=== PATIENT | male | born 1955 | race Caucasian/White ===

== ENCOUNTER → 2018-10-17 22:20 | Outpatient (CLI) | payer BC, SELFPAY ==
[2018-10-17 18:35] VITALS: BMI 39.9
[2018-10-17 22:39] LABS: Absolute Lymphocyte Count 1.58 X10^3/ul (0.83-4.51); Absolute Neutrophil Count 4.8 X10^3/uL (2.0-7.7); Basophil# 0.04 X10^3/uL; Basophil% 0.5 % (0-1); Eosinophil# 0.33 X10^3/uL; Eosinophils% 4.4 % (0-5); Hematocrit 48.7 % (40-54); Hemoglobin 16.3 g/dl (13.0-16.5); Lymphocyte # 1.58 X10^3/ul (4.0); Lymphocyte % 20.8 % (19-41); Mean Corp Hgb Conc 33.5 g/gl (32-36); Mean Corpuscular Hgb 29.7 pg (27.0-32.0); Mean Corpuscular Volume 88.9 fL (80-94); Mean Platelet Vol. 11.7 fl (6.2-12.0); Monocyte# 0.77 X10^3/uL; Monocyte% 10.2 % (0-10); Neutrophil # 4.77 X10^3/uL (2.7-7.7); Neutrophil % 62.9 % (47-70); Platelet Count 83 K/mm3 (150-450); RBC Distribution Width CV 13.6 % (11.6-14.6); RBC Distribution Width SD 43.7 fl (35.1-43.9); Red Blood Count 5.48 M/mm3 (4.6-6.2); White Blood Count 7.6 K/mm3 (4.4-11.0)
[2018-10-17 22:44] LABS: POSITIVE COUNT NO; POSITIVE DIFFERENTIAL NO; POSITIVE MORPHOLOGY NO
[2018-10-17 22:54] LABS: AST(SGOT) 26 U/L (15-37); Alanine Aminotransfer ALT/SGPT 52 U/L (16-61); Albumin, Serum 3.9 g/dL (3.2-5.0); Alkaline Phosphatase 105 U/L (45-117); Anion Gap 6 (5-15); BUN 31 mg/dL (7-18); BUN/Creat Ratio 24.4 RATIO (10-20); Calcium,Total 9.2 mg/dL (8.5-10.1); Chloride 107 mmol/L (98-107); Creatinine, Serum 1.27 mg/dL (0.70-1.30); EST Glomerular Filtration Rate 60 mL/min (>60); Est Glom Filt Rate - Afr Amer 73 mL/min (>60); Glucose 93 mg/dL (74-106); Lipase 163 U/L (73-393); Potassium 4.4 mmol/L (3.5-5.1); Protein, Total 7.9 g/dL (6.4-8.2); Sodium Level 139 mmol/L (136-145)
== END ==
PROVIDERS: Referring Provider Nurse Practitioner; Visit Provider Nurse Practitioner
DX: Q64.9 Congenital malformation of urinary system, unspecified (principal); R35.0 Frequency of micturition; D69.59 Other secondary thrombocytopenia; T50.905A Adverse effect of unspecified drugs, medicaments and biological substances, initial encounter; R10.9 Unspecified abdominal pain
CPT/HCPCS: 80053; 83690; 85025; 87086

== ENCOUNTER → 2020-06-26 | Outpatient (CLI) | payer MEDICARE, SELFPAY ==
[2020-06-26 18:44] VITALS: BMI 38.6
[2020-06-26 21:05] LABS: Uric Acid 9.3 mg/dL (3.5-7.2)
== END | disposition home or self-care (01) ==
PROVIDERS: PCP Nurse Practitioner; Referring Provider Nurse Practitioner; Visit Provider Nurse Practitioner
DX: M10.9 Gout, unspecified (principal)
CPT/HCPCS: 84550

== ENCOUNTER → 2021-01-08 | Outpatient (CLI) | payer MEDICARE, SELFPAY ==
[2021-01-08 17:56] VITALS: BMI 39.2
[2021-01-08 22:36] LABS: Absolute Lymphocyte Count 1.18 X10^3/uL (0.83-4.51); Absolute Neutrophil Count 5.3 X10^3/uL (2.0-7.7); Basophil# 0.07 X10^3/uL; Basophil% 0.9 % (0-1); Eosinophils% 2.7 % (0-5); Hematocrit 47.6 % (40-54); Hemoglobin 15.5 g/dL (13.0-16.5); Lymphocyte # 1.18 X10^3/ul (4.0); Lymphocyte % 15.7 % (19-41); Mean Corp Hgb Conc 32.6 g/dL (32-36); Mean Corpuscular Hgb 28.9 pg (27.0-32.0); Mean Corpuscular Volume 88.6 fL (80-94); Mean Platelet Vol. 11.6 fl (6.2-12.0); Monocyte# 0.66 X10^3/uL; Monocyte% 8.8 % (0-10); NRBC Flagged by Analyzer 0 % (0-5); Neutrophil # 5.33 X10^3/uL (2.7-7.7); POSITIVE COUNT YES; Platelet Count 89 K/mm3 (150-450); RBC Distribution Width CV 13.3 % (11.6-14.6); RBC Distribution Width SD 43.3 fl (35.1-43.9); Red Blood Count 5.37 M/mm3 (4.6-6.2); White Blood Count 7.5 K/mm3 (4.4-11.0)
[2021-01-08 22:52] LABS: ALB/GLOB Ratio 0.9 RATIO (0.9-2.4); AST(SGOT) 27 U/L (15-37); Alanine Aminotransfer ALT/SGPT 42 U/L (16-61); Albumin, Serum 3.7 g/dL (3.2-5.0); Alkaline Phosphatase 122 U/L (45-117); Anion Gap 6 (5-15); BUN 37 mg/dL (7-18); BUN/Creat Ratio 20.9 RATIO (10-20); Chloride 103 mmol/L (98-107); Creatinine, Serum 1.77 mg/dL (0.70-1.30); EST Glomerular Filtration Rate 41 mL/min (>60); Est Glom Filt Rate - Afr Amer 50 mL/min (>60); Globulin 4.3 g/dL (2.2-4.2); Glucose 103 mg/dL (74-106); Potassium 4.4 mmol/L (3.5-5.1); Sodium Level 139 mmol/L (136-145); Uric Acid 9.3 mg/dL (3.5-7.2)
[2021-01-08 22:54] LABS: Differential Indicated SCAN CRITERIA MET
[2021-01-08 23:15] LABS: Differential Comment SCANNED
== END | disposition home or self-care (01) ==
PROVIDERS: Visit Provider Nurse Practitioner
DX: M10.9 Gout, unspecified (principal); R22.32 Localized swelling, mass and lump, left upper limb
CPT/HCPCS: 80053; 84550; 85025

== ENCOUNTER → 2021-07-10 | Outpatient (CLI) | payer MEDICARE, SELFPAY ==
[2021-07-10 19:21] VITALS: BMI 38.6
[2021-07-10 23:14] LABS: ALB/GLOB Ratio 1.2 RATIO (0.9-2.4); AST(SGOT) 18 U/L (15-37); Alanine Aminotransfer ALT/SGPT 42 U/L (16-61); Albumin, Serum 3.9 g/dL (3.2-5.0); Alkaline Phosphatase 130 U/L (45-117); Anion Gap 8 (5-15); BUN 32 mg/dL (7-18); BUN/Creat Ratio 19.3 RATIO (10-20); Calcium,Total 8.9 mg/dL (8.5-10.1); Chloride 107 mmol/L (98-107); Creatinine, Serum 1.66 mg/dL (0.70-1.30); EST Glomerular Filtration Rate 44 mL/min (>60); Est Glom Filt Rate - Afr Amer 53 mL/min (>60); Globulin 3.2 g/dL (2.2-4.2); Glucose 90 mg/dL (74-106); Potassium 4.2 mmol/L (3.5-5.1); Protein, Total 7.1 g/dL (6.4-8.2); Sodium Level 139 mmol/L (136-145); Uric Acid 10.3 mg/dL (3.5-7.2)
== END | disposition home or self-care (01) ==
PROVIDERS: Visit Provider Nurse Practitioner
DX: I73.9 Peripheral vascular disease, unspecified (principal); M10.341 Gout due to renal impairment, right hand; R60.0 Localized edema
CPT/HCPCS: 80053; 84550

== ENCOUNTER → 2021-07-18 09:30 | Outpatient (CLI) | payer MEDICARE, SELFPAY ==
[2021-07-10 19:21] VITALS: BMI 38.6
--- NOTE | 2021-07-18 09:41 | VDLE_ITS ---
Reason For Study: Edema RIGHT LEFT CFV is compressible, spontaneous, phasic, CFV is compressible, spontaneous, phasic, competent and demonstrates normal competent, and demonstrates normal augmentation. augmentation. FV is compressible, spontaneous, phasic, FV is compressible, spontaneous, phasic, competent and demonstrates normal competent and demonstrates normal augmentation. augmentation. POP V is compressible, spontaneous, phasic, POP V is compressible, spontaneous, phasic, competent and demonstrates normal competent and demonstrates normal augmentation. augmentation. T/P Trunk is compressible. T/P Trunk is compressible. PTV is compressible. PTV is compressible. RT PerV is compressible. LT PerV is compressible. Nonvascularized structure noted in the right Nonvascularized structure noted in the left popliteal fossa measuring approximently 2.31 popliteal fossa measuring approximently 1.45 x 3.51 x 4.41 cm. x 4.07 x 4.46 cm. SFJ is competent and measures 0.90 x 0.98 cm. SFJ is competent and measures 0.82 x 0.89 cm. GSV proximal thigh measures 0.40 x 0.41 cm. GSV proximal thigh measures 0.51 x 0.53 cm. GSV at knee measures 0.31 x 0.32 cm. GSV at knee measures 0.41 x 0.42 cm. GSV is competent throughout. GSV is competent throughout. ASV proximal calf is INCOMPETENT for greater SSV proximal calf is competent and measures than 0.5 seconds and measures 0.22 x 0.23 cm. 0.29 x 0.31 cm. SSV proximal calf is competent and measures 0.31 x 0.31 cm. Procedure This is a venous duplex using B-mode, color flow and spectral Doppler. Exam performed in department. VL/Venous Duplex US - Bhanu Extrem Interpretation Summary Deep veins of the lower extremities are bilaterally patent and compressible seg mentally. There is no evidence of deep vein thrombosis on either side. Valvular competence appears in tact within the proximal deep venous systems bilaterally. The great saphenous veins appear bila terally patent and compressible segmentally. Sapheno-femoral junctions are bilaterally competent . Valvular competence appears to be intact segmentally within the great saphenous veins bilaterally. Small saphenous veins are patent and competent bilaterally. The accessory saphenous vein in the right proximal calf is incompetent. A non-vascular structure is noted in the right and left popliteal space, with measurements as documented above. These probably represent popliteal cysts. Cli nical correlation is advised. Ordering Physician: Elif Rivera Referring Physician: Elif Rivera Performed By: Liz Mcknight RVT
--- NOTE | 2021-07-18 09:41 | ART_ITS ---
Reason For Study: PVD Procedure A bilateral lower extremity continuous wave Doppler with analog waveform analysis,segmental pressures,and ankle brachial indexes without exercise. Left Segmental Pressures Left brachial= 151mmHg. Left posterior tibial artery = 209mmHg. Left dorsalis pedis artery = 188mmHg. Left digit = 144 mmHg. The left dorsalis pedis waveforms are triphasic. The left posterior tibial artery waveforms are triphasic. Right Segmental Pressures Right brachial= 150mmHg. Right posterior tibial artery = 214mmHg. Right dorsalis pedis artery = 156mmHg. Right digit = 123 mmHg. The right dorsalis pedis waveforms are triphasic. The right posterior tibial artery waveforms are triphasic. Indices The right ankle brachial index by the dorsalis pedis is 1.03. The right ankle brachial index by the posterior tibial artery is 1.42. The right digital-brachial index is 0.81. The left ankle brachial index by the dorsalis pedis is 1.25. The left ankle brachial index by the posterior tibial artery is 1.38. The left digital-brachial index is 0.95. VL/Lower Ext Art Exam w/o Exercis Interpretation Summary Triphasic Doppler waveforms are noted at ankle level bilaterally. Pulse-volume recordings are satisfactory at all levels bilaterally, including low thigh, calf, ankle, and d igital levels. The resting right ankle-brachial index is supra-normal. The resting left ankle-brac hial index is normal. Digital-brachial indices are normal bilaterally. There is evidence of arterial calcification at ankle level on the right. There is no evidence of significant arterial occlusive disease in the lower extremities bilaterally. Ordering Physician: Elif Rivera Referring Physician: Elif Rivera Performed By: Liz Mcknight RVT
== END ==
PROVIDERS: PCP Nurse Practitioner; Referring Provider Nurse Practitioner; Visit Provider Nurse Practitioner
DX: R60.0 Localized edema (principal); I73.9 Peripheral vascular disease, unspecified
CPT/HCPCS: 93923; 93970

== ENCOUNTER → 2021-09-29 | Outpatient (CLI) | payer MEDICARE, SELFPAY ==
[2021-09-29 22:16] LABS: ALB/GLOB Ratio 0.9 RATIO (0.9-2.4); AST(SGOT) 22 U/L (15-37); Alanine Aminotransfer ALT/SGPT 39 U/L (16-61); Albumin, Serum 3.6 g/dL (3.2-5.0); Alkaline Phosphatase 135 U/L (45-117); Anion Gap 6 (5-15); BUN 24 mg/dL (7-18); BUN/Creat Ratio 13.9 RATIO (10-20); Chloride 108 mmol/L (98-107); Creatinine, Serum 1.73 mg/dL (0.70-1.30); EST Glomerular Filtration Rate 42 mL/min (>60); Est Glom Filt Rate - Afr Amer 51 mL/min (>60); Globulin 4.1 g/dL (2.2-4.2); Glucose 95 mg/dL (74-106); Potassium 4.1 mmol/L (3.5-5.1); Protein, Total 7.7 g/dL (6.4-8.2); Sodium Level 138 mmol/L (136-145); Uric Acid 6.2 mg/dL (3.5-7.2)
== END | disposition home or self-care (01) ==
PROVIDERS: PCP Nurse Practitioner; Visit Provider Nurse Practitioner
DX: M10.341 Gout due to renal impairment, right hand (principal)
CPT/HCPCS: 80053; 84550

== ENCOUNTER 2022-03-12 17:07 | Outpatient (CLI) | payer MEDICARE, SELFPAY | END 2022-03-12 23:59 | disposition home or self-care (01) | PROVIDERS: PCP Nurse Practitioner; Referring Provider Otolaryngology Otolaryngology/Facial Plastic Surgery; Visit Provider Otolaryngology Otolaryngology/Facial Plastic Surgery | DX: J32.9 Chronic sinusitis, unspecified (principal) | CPT/HCPCS: 87070; 87077; 87205 ==

== ENCOUNTER → 2022-05-06 | Outpatient (REF) | payer SELFPAY ==
[2022-05-06 07:42] LABS: Hematocrit 35.5 % (40-54); Hemoglobin 10.6 g/dL (13.0-16.5); Mean Corp Hgb Conc 29.9 g/dL (32-36); Mean Corpuscular Hgb 24.8 pg (27.0-32.0); Mean Corpuscular Volume 82.9 fL (80-94); Mean Platelet Vol. 12.8 fl (6.2-12.0); POSITIVE COUNT YES; RBC Distribution Width CV 15.9 % (11.6-14.6); RBC Distribution Width SD 47.9 fl (35.1-43.9); Red Blood Count 4.28 M/mm3 (4.6-6.2); White Blood Count 11.8 K/mm3 (4.4-11.0)
[2022-05-06 07:53] LABS: Platelet Count 44 K/mm3 (150-450)
[2022-05-06 08:51] LABS: ALB/GLOB Ratio 0.7 RATIO (0.9-2.4); AST(SGOT) 12 U/L (15-37); Alanine Aminotransfer ALT/SGPT 34 U/L (16-61); Albumin, Serum 2.5 g/dL (3.2-5.0); Alkaline Phosphatase 131 U/L (45-117); Anion Gap 8 (5-15); BUN 33 mg/dL (7-18); BUN/Creat Ratio 27.7 RATIO (10-20); Calcium,Total 8.6 mg/dL (8.5-10.1); Chloride 105 mmol/L (98-107); Creatinine, Serum 1.19 mg/dL (0.70-1.30); EST Glomerular Filtration Rate 64 mL/min (>60); Est Glom Filt Rate - Afr Amer 78 mL/min (>60); Globulin 3.5 g/dL (2.2-4.2); Glucose 103 mg/dL (74-106); Potassium 4.3 mmol/L (3.5-5.1); Sodium Level 137 mmol/L (136-145)
[2022-05-06 12:48] LABS: Pathologist Review Reviewed
== END | disposition home or self-care (01) ==
LOC: OLS.WHLTCC 05:00
PROVIDERS: PCP Nurse Practitioner; Referring Provider Family Medicine; Visit Provider Family Medicine
DX: I21.4 Non-ST elevation (NSTEMI) myocardial infarction (principal); N17.9 Acute kidney failure, unspecified; I48.20 Chronic atrial fibrillation, unspecified; M62.81 Muscle weakness (generalized); R26.2 Difficulty in walking, not elsewhere classified
CPT/HCPCS: 36415; 80053; 85027

== ENCOUNTER → 2022-05-13 | Outpatient (REF) | payer SELFPAY ==
[2022-05-13 09:15] LABS: Hematocrit 31.1 % (40-54); Hemoglobin 9.1 g/dL (13.0-16.5); Mean Corp Hgb Conc 29.3 g/dL (32-36); Mean Corpuscular Hgb 23.6 pg (27.0-32.0); Mean Corpuscular Volume 80.8 fL (80-94); Mean Platelet Vol. 10.9 fl (6.2-12.0); Platelet Count 122 K/mm3 (150-450); RBC Distribution Width CV 15.9 % (11.6-14.6); RBC Distribution Width SD 46.8 fl (35.1-43.9); Red Blood Count 3.85 M/mm3 (4.6-6.2); White Blood Count 7.9 K/mm3 (4.4-11.0)
[2022-05-13 09:46] LABS: ALB/GLOB Ratio 0.5 RATIO (0.9-2.4); AST(SGOT) 10 U/L (15-37); Alanine Aminotransfer ALT/SGPT 18 U/L (16-61); Albumin, Serum 2.1 g/dL (3.2-5.0); Alkaline Phosphatase 142 U/L (45-117); Anion Gap 5 (5-15); BUN 24 mg/dL (7-18); Calcium,Total 9.2 mg/dL (8.5-10.1); Chloride 104 mmol/L (98-107); Creatinine, Serum 1.26 mg/dL (0.70-1.30); EST Glomerular Filtration Rate 60 mL/min (>60); Est Glom Filt Rate - Afr Amer 73 mL/min (>60); Globulin 3.9 g/dL (2.2-4.2); Glucose 90 mg/dL (74-106); Potassium 3.8 mmol/L (3.5-5.1); Sodium Level 139 mmol/L (136-145)
== END | disposition home or self-care (01) ==
LOC: OLS.WHLTCC 05:00
PROVIDERS: PCP Nurse Practitioner; Visit Provider Family Medicine
DX: I21.4 Non-ST elevation (NSTEMI) myocardial infarction (principal); N17.9 Acute kidney failure, unspecified; I48.20 Chronic atrial fibrillation, unspecified; M62.81 Muscle weakness (generalized); R26.2 Difficulty in walking, not elsewhere classified
CPT/HCPCS: 36415; 80053; 85027

== ENCOUNTER → 2022-05-27 | Outpatient (REF) | payer SELFPAY ==
[2022-05-27 08:11] LABS: Hematocrit 30.1 % (40-54); Hemoglobin 8.8 g/dL (13.0-16.5); Mean Corp Hgb Conc 29.2 g/dL (32-36); Mean Corpuscular Hgb 23.5 pg (27.0-32.0); Mean Corpuscular Volume 80.3 fL (80-94); POSITIVE COUNT YES; RBC Distribution Width CV 16.1 % (11.6-14.6); RBC Distribution Width SD 47.1 fl (35.1-43.9); Red Blood Count 3.75 M/mm3 (4.6-6.2); White Blood Count 4.8 K/mm3 (4.4-11.0)
[2022-05-27 08:28] LABS: Platelet Count 22 K/mm3 (150-450)
[2022-05-27 08:31] LABS: ALB/GLOB Ratio 0.7 RATIO (0.9-2.4); AST(SGOT) 7 U/L (15-37); Alanine Aminotransfer ALT/SGPT 12 U/L (16-61); Albumin, Serum 2.4 g/dL (3.2-5.0); Alkaline Phosphatase 119 U/L (45-117); Anion Gap 8 (5-15); BUN 21 mg/dL (7-18); BUN/Creat Ratio 14.9 RATIO (10-20); Calcium,Total 8.8 mg/dL (8.5-10.1); Chloride 104 mmol/L (98-107); Creatinine, Serum 1.41 mg/dL (0.70-1.30); EST Glomerular Filtration Rate 53 mL/min (>60); Est Glom Filt Rate - Afr Amer 64 mL/min (>60); Globulin 3.5 g/dL (2.2-4.2); Glucose 97 mg/dL (74-106); Potassium 4.1 mmol/L (3.5-5.1); Protein, Total 5.9 g/dL (6.4-8.2); Sodium Level 141 mmol/L (136-145)
[2022-05-27 09:23] LABS: Scan Indicated on CBC? Y/N YES- FLAGS NOTED
[2022-05-27 12:38] LABS: Pathologist Review Reviewed
== END | disposition home or self-care (01) ==
LOC: OLS.WHLTCC 04:00
PROVIDERS: PCP Nurse Practitioner; Referring Provider Family Medicine; Visit Provider Family Medicine
DX: I48.20 Chronic atrial fibrillation, unspecified (principal); N17.9 Acute kidney failure, unspecified; I21.4 Non-ST elevation (NSTEMI) myocardial infarction; M62.81 Muscle weakness (generalized); R26.2 Difficulty in walking, not elsewhere classified
CPT/HCPCS: 36415; 80053; 85027

== ENCOUNTER 2022-06-02 22:54 | Observation (INO) | payer MEDICARE, SELFPAY ==
[2022-06-02 22:56] VITALS: BP 123/65; PULSE 105; RESP 18; TEMP 35.9; O2SAT 99; BMI 40.3
--- NOTE | 2022-06-02 23:38 | EKG12_ITS ---
Test Reason : DYSRHYTHMIA Blood Pressure : / mmHG Vent. Rate : 098 BPM Atrial Rate : 326 BPM P-R Int : 000 ms QRS Dur : 076 ms QT Int : 344 ms P-R-T Axes : 000 -07 132 degrees QTc Int : 439 ms Atrial fibrillation with premature ventricular or aberrantly conducted complexes Septal infarct , age undetermined Nonspecific ST and T wave abnormality Abnormal ECG Confirmed by TAMIR BARBOSA, KAREN ([id number]), editor managing director SISSY PORRAS ([id number]) on 06/06/2022 9:44:31 AM Referred By: JUDIT Confirmed By:KAREN GARNETT MD
--- NOTE | 2022-06-02 23:39 | ED.VIS.DYS ---
HPI History of Present Illness Chief Complaint: Shortness of Breath Informant: patient Narrative Narrative: Patient presents with some mild dyspnea for about a week. He denies any chest pain at any time with this. He states he has had an occasional small dry cough but is not a big deal. Nothing really makes the breathing better or worse. He states he is going through rehab and went from not walking to doing 290 steps now. His plan was to go home on . Just yesterday he had a home visit to make sure he could get around. This patient evidently had a fall from a couch back on April 01. He got stuck on the ground for 2 days. He was then in [facility] for 30 days. He states they kept doing testing. He denied any heart attacks but staff member just gave me a note that his power of trademark attorney called in and states that he had a small heart attack while in the hospital. Patient does state he has a history of atrial fibrillation. This started about 5 years ago. He had an ablation done which he thinks to fix things until he was in the hospital recently when the atrial fibrillation came back. He has had it for the last 2 months. He is not on blood thinners but his doctors talk at to him about maybe adding those after he goes home. He denies a history of CHF but I do see he is on Lasix daily. Patient has chronic edema and he states is not worse. He does not think he has gained any weight. He has had no fevers or chills. He has never had a DVT or PE. His symptoms have been slow to develop and not sudden onset. [facility] Medical History (Updated 06/03/22 @ 06:[address] Maverick Brambila MD) Atrial fibrillation Chronic ITP (idiopathic thrombocytopenia) GERD (gastroesophageal reflux disease) Gout Hypertension Plantar fasciitis of left foot Temporary low platelet count Home Medications hydroxychloroquine 200 mg tablet 200 mg PO BID 07/10/21 [History Last Taken Unknown] furosemide 40 mg tablet 60 mg PO DAILY 09/29/21 [History Last Taken Unknown] albuterol sulfate 90 mcg/actuation aerosol inhaler (Ventolin HFA) 2 puff inhalation Q6H PRN PRN Shortness Of Breath 06/03/22 [History Last Taken Unknown] aspirin 81 mg capsule 81 mg PO DAILY 06/03/22 [History Last Taken Unknown] bisacodyl 5 mg tablet,delayed release 10 mg PO QHS 06/03/22 [History Last Taken Unknown] clotrimazole 1 % topical cream (Antifungal (clotrimazole)) 1 applic topical BID 06/03/22 [History Last Taken Unknown] diclofenac sodium 1 % topical gel 1 ea topical TID 06/03/22 [History Last Taken Unknown] doxepin 25 mg capsule 25 mg PO DAILY 06/03/22 [History Last Taken Unknown] hydralazine 10 mg tablet 10 mg PO TID 06/03/22 [History Last Taken Unknown] isosorbide mononitrate 30 mg tablet,extended release 24 hr 30 mg PO DAILY 06/03/22 [History Last Taken Unknown] melatonin 3 mg tablet 3 mg PO QHS 06/03/22 [History Last Taken Unknown] metoprolol succinate 50 mg tablet,extended release 24 hr 25 mg PO QDAY 06/03/22 [History Last Taken Unknown] oxycodone 5 mg tablet (Roxicodone) 5 mg PO Q6H PRN Pain 06/03/22 [History Last Taken Unknown] pantoprazole 40 mg granules delayed-release for susp in packet 40 mg PO BID 06/03/22 [History Last Taken Unknown] polyethylene glycol 3350 17 gram/dose oral powder (Miralax) 19 g PO DAILY 06/03/22 [History Last Taken Unknown] prednisone 20 mg tablet 5 mg PO DAILY 06/03/22 [History Last Taken Unknown] thiamine HCl (vitamin B1) 100 mg tablet 100 mg PO TID 06/03/22 [History Last Taken Unknown] ursodiol 300 mg capsule 300 mg PO TID 06/03/22 [History Last Taken Unknown] Allergy/AdvReac Type Severity Reaction Status Date / Time Penicillins [PCN] Allergy Rash Verified 06/02/22 22:58 Family History (Updated 06/03/22 @ 04:[address] Carson Levy MD) Other Heart disease Surgical History History of radiofrequency ablation (RFA) procedure for cardiac arrhythmia Social History Smoking Status: Never smoker ROS ROS ED Constitutional Constitutional ED: Denies fever(s) or sweats Eyes Eyes: Denies change in vision ENT ENT ED: Denies rhinorrhea or sore throat Cardiovascular Cardiovascular: Denies chest pain, palpitations or racing heartbeat Respiratory/Chest Respiratory/Chest: Reports cough and dyspnea; Denies sputum Gastrointestinal Gastrointestinal: Denies abdominal pain, diarrhea, nausea or vomiting Genitourinary Genitourinary ED: Denies dysuria Musculoskeletal Musculoskeletal: Denies myalgias Integumentary Denies rash Neurologic Neurologic: Reports other Details: Patient has had generalized weakness. He states his left side has been weaker ever since the fall. He was told he has 2 spots on his brain on MRI but he was not told that this was a stroke. ; Denies headache(s) or paresthesias Endocrine Endocrinology: Denies polydipsia or polyuria Hematologic/Lymphatic Hematologic/Lymphatic: Denies easy bleeding or easy bruising Allergic/Immunologic Allergic/Immunologic ED: Denies urticaria EXAM Physical Exam Const Vital Signs: 06/02/22 22:56 06/02/22 23:51 06/02/22 23:51 Temperature 96.6 F L Temperature Source Temporal Pulse Rate 105 H 96 Respiratory Rate 18 24 H 24 H Respiratory Effort Short of Breath Respiratory Depth Shallow Respiratory Pattern Tachypnea Tachypnea Blood Pressure 123/65 H Blood Pressure Mean 84 Pulse Ox 99 95 Oxygen Delivery Method Nasal Cannula Room Air Oxygen Flow Rate (L/min) 2 06/03/22 00:13 06/03/22 00:16 06/03/22 02:02 Temperature Temperature Source Pulse Rate 98 Respiratory Rate 21 H 18 Respiratory Effort Short of Breath Respiratory Depth Shallow Respiratory Pattern Normal Blood Pressure 116/74 Blood Pressure Mean 88 Pulse Ox 97 94 Oxygen Delivery Method Room Air Room Air Nasal Cannula Oxygen Flow Rate (L/min) 2 Positive well nourished, well developed and obese Constitutional Narrative: Respiratory effort does look slightly increased. General Appearance ED: well developed and NAD; Negative for pallor Nutritional Appearance: obese HEENT Reports moist mucous membranes Negative for trauma Eyes General Eye ED: Negative for pale conjunctiva or scleral icterus Neck no JVD Resp Resp Narrative: Mild increased respiratory effort. Breath sounds are slightly decreased at the bases. I do not hear rhonchi or wheezes. I do not hear rales but again overall breath sounds are decreased. Auscultation: diminished lung sounds; Negative for rales, rhonchi or wheezes Cardio regular rate Cardio Narrative: Patient does appear to be in atrial fibrillation but rate controlled at about 90-100 Rhythm: abnormal rhythm GI non-tender and non-distended Back/Spine no CVA tenderness Extremity Extremity Narrative: Bilateral chronic edema. Patient states that that is baseline for him and no different. General Extremety ED: Yes edema General Extremity: edema Neuro oriented x3 Neuro Narrative: Patient did not know that he had heart attack but the rest of his story seems pretty detailed and consistent. Sensorium / Orientation: alert Psych mental status grossly normal Skin General Skin Exam: Negative for jaundice or pallor Rashes: no rashes MDM MDM MDM Narrative Medical decision making narrative: Patient's labs show mild elevation of his creatinine 1.74. Minimal elevation of potassium. CBC shows anemia. He also has low platelets consistent with his history of ITP. BNP was high at approximately 8085. D-dimer is elevated. With his symptoms, D-dimer and relative immobility for 2 months we did do a CTA. No pulmonary embolus or dissection. There was signs of congestion and effusions. This patient will occasionally drop his saturations. He will drop into the 80s walking. They have increased his Lasix from 40-60 a day about 2 to 3 weeks ago. He is having worsening dyspnea along with worsening renal function elevated BNP hypoxia. I have no echo on record for him. Patient will be admitted. Lab Data Attestation: I reviewed the patient's lab results. Labs: Laboratory Results - last 24 hr 06/02/22 06/02/22 06/02/22 23:50 23:50 23:50 WBC Cancelled Corrected WBC Cancelled RBC Cancelled Hgb Cancelled Hct Cancelled MCV Cancelled MCH Cancelled MCHC Cancelled RDW Std Deviation Cancelled RDW Coeff of Mohit Cancelled Plt Count Cancelled MPV Cancelled Immature Gran % (Auto) Cancelled Neut % (Auto) Cancelled Lymph % (Auto) Cancelled [place] % (Auto) Cancelled Eos % (Auto) Cancelled Baso % (Auto) Cancelled Absolute Neuts (auto) Cancelled Absolute Lymphs (auto) Cancelled Total Counted Cancelled Neutrophils % (Manual) Cancelled Band Neutrophils % Cancelled Lymphocytes % (Manual) Cancelled Monocytes % (Manual) Cancelled Eosinophils % (Manual) Cancelled Basophils % (Manual) Cancelled Metamyelocytes % Cancelled Myelocytes % Cancelled Promyelocytes % Cancelled Blast Cells % Cancelled Plasma Cell % (Manual) Cancelled Other Cells % Cancelled Nucleated RBC % Cancelled Nucleated RBCs/100 WBC Cancelled Differential Comment Cancelled Diff Path Review Cancelled Hypersegmented Neuts Cancelled Atypical Lymphocytes Cancelled Reactive Lymphocytes Cancelled Smudge Cells Cancelled Toxic Granulation Cancelled Toxic Vacuolation Cancelled Dohle Bodies Cancelled Jaycob Rods Cancelled Platelet Estimate Cancelled Plt Morphology Comment Cancelled RBC Morphology Cancelled Polychromasia Cancelled Hypochromasia Cancelled Poikilocytosis Cancelled Basophilic Stippling Cancelled Anisocytosis Cancelled Microcytosis Cancelled Macrocytosis Cancelled Spherocytes Cancelled Sickle Cells Cancelled Target Cells Cancelled Tear Drop Cells Cancelled Ovalocytes Cancelled Stomatocytes Cancelled [place] Bodies Cancelled Joshua Cells Cancelled Bite Cells Cancelled Crenated Cell Cancelled Acanthocytes (Spur) Cancelled Rouleaux Cancelled Schistocytes Cancelled D-Dimer Quant (PE/DVT) Cancelled Sodium 138 Potassium 5.4 H Chloride 105 Carbon Dioxide 28.0 Anion Gap 5 BUN 24 H Creatinine 1.74 H Estim Creat Clear Calc 37.46 Est GFR (MDRD) Af Amer 50 L Est GFR (MDRD) Non-Af 42 L BUN/Creatinine Ratio 13.8 Glucose 107 H Calcium 9.0 Troponin I High Sens 50 B-Natriuretic Peptide 06/03/22 06/03/22 06/03/22 00:28 00:28 00:28 WBC 6.9 Corrected WBC RBC 4.15 L Hgb 9.6 L Hct 33.4 L MCV 80.5 MCH 23.1 L MCHC 28.7 L RDW Std Deviation 47.5 H RDW Coeff of Mohit 16.8 H Plt Count 40 L* MPV 11.8 Immature Gran % (Auto) 0.900 Neut % (Auto) 75.3 H Lymph % (Auto) 13.0 L [place] % (Auto) 8.2 Eos % (Auto) 2.2 Baso % (Auto) 0.4 Absolute Neuts (auto) 5.2 Absolute Lymphs (auto) 0.89 Total Counted Neutrophils % (Manual) Band Neutrophils % Lymphocytes % (Manual) Monocytes % (Manual) Eosinophils % (Manual) Basophils % (Manual) Metamyelocytes % Myelocytes % Promyelocytes % Blast Cells % Plasma Cell % (Manual) Other Cells % Nucleated RBC % 0 Nucleated RBCs/100 WBC Differential Comment SCANNED Diff Path Review May foll Hypersegmented Neuts Atypical Lymphocytes Reactive Lymphocytes Smudge Cells Toxic Granulation Toxic Vacuolation Dohle Bodies [place] Rods Platelet Estimate Plt Morphology Comment RBC Morphology Polychromasia Hypochromasia Poikilocytosis Basophilic Stippling Anisocytosis Microcytosis Macrocytosis Spherocytes Sickle Cells Target Cells Tear Drop Cells Ovalocytes Stomatocytes [place] Bodies [place] Cells Bite Cells Crenated Cell Acanthocytes (Spur) Rouleaux Schistocytes D-Dimer Quant (PE/DVT) 4.73 H* Sodium Potassium Chloride Carbon Dioxide Anion Gap BUN Creatinine Estim Creat Clear Calc Est GFR (MDRD) Af Amer Est GFR (MDRD) Non-Af BUN/Creatinine Ratio Glucose Calcium Troponin I High Sens B-Natriuretic Peptide 1085.0 H Radiography Diagnostic Testing: Clinical Impression(s) from Imaging Studies Chest X-Ray 06/03/22 00:00 IMPRESSION: Developing CHF/volume overload. Electronically Signed: Chris Ruiz MD at 0:59 EDT , Chest CTA 06/03/22 01:15 IMPRESSION: Negative for PE. No thoracic aortic dissection identified. Bilateral pleural effusions, larger on the right, with adjacent compressive atelectasis. No pneumonia. Electronically Signed: Anil Powell MD at 2:46 EDT , Discharge Plan Dx/Rx/DC Orders Clinical Impression: Congestive heart failure, Pleural effusion, Hypoxia Disposition Disposition: Acute Care Hospital [facility]
[2022-06-02 23:51] VITALS: PULSE 96; RESP 24; O2SAT 95
[2022-06-02] MEDS: Ipratropium/Albuterol Sulfate 3 ML AMPUL.NEB INHALATION (23:51)
[2022-06-03] VITALS (24 sets, daily range): BP systolic 101–146; BP diastolic 62–115; PULSE 81–104; RESP 16–21; TEMP 36.3–37; O2SAT 93–100; BMI 37.7
--- NOTE | 2022-06-03 | FLU_PTH ---
PATIENT: LUIS ALBERTO GARCIA LOC: [facility] U#:[id number] AGE/SX: 67/M ROOM: [facility] RE06/03/[address]: Dr. Rashad Braga DO : 1955 BED: 1 DIS: 06/04/2022 SPEC #: [id number] RECD: 06/03/22 13:50 STATUS: JANIS POLLOCK #: [id number] BOLIVAR: 06/03/22 00:[address]: Rashad Braga DEPT: CYTOLOGY RECD BY: Uriel Cabrera ENTERED: 06/04/22 09:23 SP TYPE: Fluid OTHR DR: MD Elif Marcus, MANAGER SOCIAL WORK-C Tissues: Pleural fluid, NOS Procedures: Special Stain Group II Surgery Specimen Level IV Cytospin Fluid HEADER OPERATION: Ultrasound-guided thoracentesis PRE-OP DIAGNOSIS: Pleural effusion TISSUE SUBMITTED: Thoracentesis fluid for cytology DIAGNOSIS CYTOLOGY Thoracentesis fluid for cytology (cytospin and cell block): Negative for malignant cells. AM:eulalio 06/05/2022 CYTOLOGY STUDY Slides are reviewed. CYTOLOGY GROSS Received is 80 ml of red cloudy fluid labeled with the patient's name and and designated per the requisition as thoracentesis. Submitted for cytology preparation including cell block. / eulalio 06/04/2022 TC:5 CPT: 45950, 53272
--- NOTE | 2022-06-03 | RAD_ITS ---
STUDY: X-RAY CHEST REASON FOR EXAM: Male, 67 years old. SOB TECHNIQUE: 1 view COMPARISON: None. FINDINGS: Cardiac silhouette top normal in size. Pulmonary vascular congestion. Small bilateral pleural effusions. Bibasilar patchy opacities, likely atelectasis. Aspiration or pneumonia not excluded. Platelike atelectasis versus linear scars in the bilateral mid and left lower lung zones. No pneumothorax. Status post right shoulder arthroplasty. RAD/Chest 1 View (Portable) IMPRESSION: Developing CHF/volume overload. Electronically Signed: Chris Ruiz MD at 0:59 EDT ,
[2022-06-03 00:20] LABS: Anion Gap 5 (5-15); BUN 24 mg/dL (7-18); BUN/Creat Ratio 13.8 RATIO (10-20); Chloride 105 mmol/L (98-107); Creatinine, Serum 1.74 mg/dL (0.70-1.30); EST Glomerular Filtration Rate 42 mL/min (>60); Est Glom Filt Rate - Afr Amer 50 mL/min (>60); Estimated Creatinine Clearance 37.46 ml/min; Glucose 107 mg/dL (74-106); Potassium 5.4 mmol/L (3.5-5.1); Sodium Level 138 mmol/L (136-145); Troponin-I HS 50 pg/mL (3.0-78.0)
[2022-06-03 00:52] LABS: Absolute Lymphocyte Count 0.89 X10^3/uL (0.83-4.51); Absolute Neutrophil Count 5.2 X10^3/uL (2.0-7.7); Basophil# 0.03 X10^3/uL; Basophil% 0.4 % (0-1); Eosinophil# 0.15 X10^3/uL; Eosinophils% 2.2 % (0-5); Hematocrit 33.4 % (40-54); Hemoglobin 9.6 g/dL (13.0-16.5); Lymphocyte # 0.89 X10^3/ul (0.83-4.51); Mean Corp Hgb Conc 28.7 g/dL (32-36); Mean Corpuscular Hgb 23.1 pg (27.0-32.0); Mean Corpuscular Volume 80.5 fL (80-94); Mean Platelet Vol. 11.8 fl (6.2-12.0); Monocyte# 0.56 X10^3/uL; Monocyte% 8.2 % (0-10); NRBC Flagged by Analyzer 0 % (0-5); Neutrophil # 5.17 X10^3/uL (2.7-7.7); Neutrophil % 75.3 % (47-70); POSITIVE COUNT YES; RBC Distribution Width CV 16.8 % (11.6-14.6); RBC Distribution Width SD 47.5 fl (35.1-43.9); Red Blood Count 4.15 M/mm3 (4.6-6.2); White Blood Count 6.9 K/mm3 (4.4-11.0)
[2022-06-03 01:02] LABS: Differential Indicated SCAN CRITERIA MET; Platelet Count 40 K/mm3 (150-450)
[2022-06-03 01:10] LABS: D-Dimer Quantitative (DVT/PE) 4.73 FEU/ug/m (0.27-0.49)
--- NOTE | 2022-06-03 01:15 | CT_ITS ---
STUDY: CTA CHEST REASON FOR EXAM: Male, 67 years old. Dyspnea, elevated D-dimer RADIATION DOSAGE (If Supplied By Facility): CTDIvol = ( 26.91 ) mGy, DLP = ( 581.41 ) mGycm TECHNIQUE: The examination was performed with the intravenous administration of IV 100mL Isovue-370. Post-processing of the angiographic images was performed, with multiplanar reformation and 3D reconstruction. Individualized dose optimization techniques were used for this CT. COMPARISON: Portable chest radiograph of this date.. FINDINGS: Streak artifact arises from a right shoulder prosthesis. Normal enhancement of the main pulmonary artery and right and left pulmonary arteries. Normal enhancement of the bilateral peripheral pulmonary arteries. There is no demonstrated pulmonary embolism. Normal thoracic aorta and visualized great vessels. There is no demonstrated aortic dissection. Moderate coronary artery calcification. No pericardial effusion. Numerous calcified hilar and mediastinal lymph nodes indicating remote granulomatous infection. No adenopathy. Compressive atelectasis adjacent to the pleural effusions. Bands of discoid atelectasis bilaterally. No patchy airspace disease to indicate pneumonia or alveolar pulmonary edema. Minimal pulmonary interstitial thickening. Small-moderate left pleural effusion. Moderate right pleural effusion. No acute osseous abnormality. Extensive thoracic degenerative disc disease. Visualized portions of the liver, spleen, pancreas, adrenal glands and renal upper poles are unremarkable. The gallbladder is not visualized. No pneumoperitoneum is seen. CT/CTA Chest W/WO Contrast IMPRESSION: Negative for PE. No thoracic aortic dissection identified. Bilateral pleural effusions, larger on the right, with adjacent compressive atelectasis. No pneumonia. Electronically Signed: Anil Powell MD at 2:46 EDT ,
[2022-06-03 01:35] LABS: Differential Comment SCANNED
--- NOTE | 2022-06-03 03:33 | HP.PCM.HOS_ITS ---
HPI - General General Date of Admission: 06/03/22 Date of Service: 06/03/22 Chief Complaint: Shortness of breath HPI Narrative LUIS ALBERTO GARCIA, is a 67 M with a significant history of hypertension; ITP;NSTEMI who presents to the emergency department with 1 week history of progressively worsening shortness of breath. Of note on April 01, 2022 patient fell between the couch and the fireplace. He presented to [facility] and was transferred to [facility] where he stayed there for about 1 month. He was eventually discharged from [facility] to a rehab unit. As at the time of presentation patient had about 2 days before he discharged from the rehab facility. However because of worsening shortness of breath he was brought to emergency department as above. Reportedly patient is on chronic 40 mg of Lasix daily but on May 06 2022 his Lasix was increased to 60 mg daily. He is unsure whether he has a diagnosed history of CHF. He has been on Lasix for PVD. At the ED it was noticed that with sleep his oxygen saturation decreased into the 70s on room air. [facility] Medical History (Updated 06/03/22 @ 05:[address] Carson Levy MD) Atrial fibrillation Chronic ITP (idiopathic thrombocytopenia) GERD (gastroesophageal reflux disease) Gout Hypertension Plantar fasciitis of left foot Temporary low platelet count Home Medications hydroxychloroquine 200 mg tablet 200 mg PO BID 07/10/21 [History Last Taken Unknown] furosemide 40 mg tablet 60 mg PO DAILY 09/29/21 [History Last Taken Unknown] albuterol sulfate 90 mcg/actuation aerosol inhaler (Ventolin HFA) 2 puff inhalation Q6H PRN PRN Shortness Of Breath 06/03/22 [History Last Taken Unknown] aspirin 81 mg capsule 81 mg PO DAILY 06/03/22 [History Last Taken Unknown] bisacodyl 5 mg tablet,delayed release 10 mg PO QHS 06/03/22 [History Last Taken Unknown] clotrimazole 1 % topical cream (Antifungal (clotrimazole)) 1 applic topical BID 06/03/22 [History Last Taken Unknown] diclofenac sodium 1 % topical gel 1 ea topical TID 06/03/22 [History Last Taken Unknown] doxepin 25 mg capsule 25 mg PO DAILY 06/03/22 [History Last Taken Unknown] hydralazine 10 mg tablet 10 mg PO TID 06/03/22 [History Last Taken Unknown] isosorbide mononitrate 30 mg tablet,extended release 24 hr 30 mg PO DAILY 06/03/22 [History Last Taken Unknown] melatonin 3 mg tablet 3 mg PO QHS 06/03/22 [History Last Taken Unknown] metoprolol succinate 50 mg tablet,extended release 24 hr 25 mg PO QDAY 06/03/22 [History Last Taken Unknown] oxycodone 5 mg tablet (Roxicodone) 5 mg PO Q6H PRN Pain 06/03/22 [History Last Taken Unknown] pantoprazole 40 mg granules delayed-release for susp in packet 40 mg PO BID 06/03/22 [History Last Taken Unknown] polyethylene glycol 3350 17 gram/dose oral powder (Miralax) 19 g PO DAILY 06/03/22 [History Last Taken Unknown] prednisone 20 mg tablet 5 mg PO DAILY 06/03/22 [History Last Taken Unknown] thiamine HCl (vitamin B1) 100 mg tablet 100 mg PO TID 06/03/22 [History Last Taken Unknown] ursodiol 300 mg capsule 300 mg PO TID 06/03/22 [History Last Taken Unknown] Allergy/AdvReac Type Severity Reaction Status Date / Time Penicillins [PCN] Allergy Rash Verified 06/02/22 22:58 Family History (Updated 06/03/22 @ 04:[address] Carson Levy MD) Other Heart disease Surgical History History of radiofrequency ablation (RFA) procedure for cardiac arrhythmia Social History Smoking Status: Never smoker ROS ROS Narrative All systems were reviewed and were negative except as in hpi Vital Signs Vital Signs Vital Signs: 06/02/22 22:56 06/02/22 23:51 06/02/22 23:51 Temperature 96.6 F L Temperature Source Temporal Pulse Rate 105 H 96 Respiratory Rate 18 24 H 24 H Respiratory Effort Short of Breath Respiratory Depth Shallow Respiratory Pattern Tachypnea Tachypnea Blood Pressure 123/65 H Blood Pressure Mean 84 Pulse Ox 99 95 Oxygen Delivery Method Nasal Cannula Room Air Oxygen Flow Rate (L/min) 2 06/03/22 00:13 06/03/22 00:16 06/03/22 02:02 Temperature Temperature Source Pulse Rate 98 Respiratory Rate 21 H 18 Respiratory Effort Short of Breath Respiratory Depth Shallow Respiratory Pattern Normal Blood Pressure 116/74 Blood Pressure Mean 88 Pulse Ox 97 94 Oxygen Delivery Method Room Air Room Air Nasal Cannula Oxygen Flow Rate (L/min) 2 06/03/22 03:14 Temperature Temperature Source Pulse Rate 104 H Respiratory Rate 17 Respiratory Effort Respiratory Depth Respiratory Pattern Blood Pressure 139/84 H Blood Pressure Mean 102 Pulse Ox 94 Oxygen Delivery Method Room Air Oxygen Flow Rate (L/min) Weight Weight: 116.7 kg Body Mass Index (BMI) 40.3 Physical Exam Narrative Physical exam: General: Well-nourished, well-developed. Head: Normocephalic, atraumatic, no tenderness Eyes: Vision is grossly intact. EOMI ENT, no trauma, moist mucous membranes, no rhinorrhea Neck: Nontender, full range of motion, no spinal tenderness, deformities, step- off CVS: Regular rate and rhythm. S1-S2 present. No murmur, gallop or rub. Bilateral leg edema 3-4+. Respiratory : clear to auscultation bilaterally, chest wall nontender, no wheezing Abdomen: Soft, nontender, nondistended, normal bowel sounds, no masses : Deferred Back: Nontender, no CVA tenderness. Extremities: Nontender full range of motion, no trauma Skin: Normal color, no trauma, abrasions Neuro: Alert, oriented, cranial nerves II through XII grossly intact. Psychiatry: Normal mood. Normal affect. Not depressed. Not anxious. Results Lab / Micro Data Result Diagrams: 06/03/22 00:28 06/02/22 23:50 Labs: Laboratory Results - last 24 hr 06/02/22 23:50: WBC Cancelled, Corrected WBC Cancelled, RBC Cancelled, Hgb Cancelled, Hct Cancelled, MCV Cancelled, MCH Cancelled, MCHC Cancelled, RDW Std Deviation Cancelled, RDW Coeff of Mohit Cancelled, Plt Count Cancelled, MPV Cancelled, Immature Gran % (Auto) Cancelled, Neut % (Auto) Cancelled, Lymph % (Auto) Cancelled, [place] % (Auto) Cancelled, Eos % (Auto) Cancelled, Baso % (Auto) Cancelled, Absolute Neuts (auto) Cancelled, Absolute Lymphs (auto) Cancelled, Total Counted Cancelled, Neutrophils % (Manual) Cancelled, Band Neutrophils % Cancelled, Lymphocytes % (Manual) Cancelled, Monocytes % (Manual) Cancelled, Eosinophils % (Manual) Cancelled, Basophils % (Manual) Cancelled, Metamyelocytes % Cancelled, Myelocytes % Cancelled, Promyelocytes % Cancelled, Blast Cells % Cancelled, Plasma Cell % (Manual) Cancelled, Other Cells % Cancelled, Nucleated RBC % Cancelled, Nucleated RBCs/100 WBC Cancelled, Differential Comment Cancelled, Diff Path Review Cancelled, Hypersegmented Neuts Cancelled, Atypical Lymphocytes Cancelled, Reactive Lymphocytes Cancelled, Smudge Cells Cancelled, Toxic Granulation Cancelled, Toxic Vacuolation Cancelled, Dohle Bodies Cancelled, [place] Rods Cancelled, Platelet Estimate Cancelled, Plt Morphology Comment Cancelled, RBC Morphology Cancelled, Polychromasia Cancelled, Hypochr omasia Cancelled, Poikilocytosis Cancelled, Basophilic Stippling Cancelled, Anisocytosis Cancelled, Microcytosis Cancelled, Macrocytosis Cancelled, Spherocytes Cancelled, Sickle Cells Cancelled, Target Cells Cancelled, Tear Drop Cells Cancelled, Ovalocytes Cancelled, Stomatocytes Cancelled, Oliveira-[place] Bodies Cancelled, Joshua Cells Cancelled, Bite Cells Cancelled, Crenated Cell Cancelled, Acanthocytes (Spur) Cancelled, Rouleaux Cancelled, Schistocytes Cancelled 06/02/22 23:50: D-Dimer Quant (PE/DVT) Cancelled 06/02/22 23:50: Sodium 138, Potassium 5.4 H, Chloride 105, Carbon Dioxide 28.0, Anion Gap 5, BUN 24 H, Creatinine 1.74 H, Estim Creat Clear Calc 37.46, Est GFR (MDRD) Af Amer 50 L, Est GFR (MDRD) Non-Af 42 L, BUN/Creatinine Ratio 13.8, Glucose 107 H, Calcium 9.0, Troponin I High Sens 50 06/03/22 00:28: B-Natriuretic Peptide 1085.0 H 06/03/22 00:28: WBC 6.9, RBC 4.15 L, Hgb 9.6 L, Hct 33.4 L, MCV 80.5, MCH 23.1 L , MCHC 28.7 L, RDW Std Deviation 47.5 H, RDW Coeff of Mohit 16.8 H, Plt Count 40 L*, MPV 11.8, Immature Gran % (Auto) 0.900, Neut % (Auto) 75.3 H, Lymph % (Auto) 13.0 L, [place] % (Auto) 8.2, Eos % (Auto) 2.2, Baso % (Auto) 0.4, Absolute Neuts (auto) 5.2, Absolute Lymphs (auto) 0.89, Nucleated RBC % 0, Differential Comment SCANNED, Diff Path Review March06/03/22 00:28: D-Dimer Quant (PE/DVT) 4.73 H* Micro: Microbiology 06/02/22 23:44 Nasal Secretion SARS-CoV-2 & FLU Antigen (Rapid) - Final Radiology Impression Chest X-Ray 06/03/22 00:00 IMPRESSION: Developing CHF/volume overload. Electronically Signed: Chris Ruiz MD at 0:59 EDT , Chest CTA 06/03/22 01:15 IMPRESSION: Negative for PE. No thoracic aortic dissection identified. Bilateral pleural effusions, larger on the right, with adjacent compressive atelectasis. No pneumonia. Electronically Signed: Anil Powell MD at 2:46 EDT , Assessment & Plan Assessment/Plan (1) Heart failure: (2) Pleural effusion: (3) History of ITP: (4) Sleep apnea: PLAN: Plan Acute Exacerbation of heart failure Unclear whether reduced or preserved ejection fraction Place on monitored bed at the PCU Weight on admission to the floor; and then daily Strict I&O's CXR was visualized and independently interpreted and I agree with radiologist interpretation of volume overload.independently reviewed Chest CTA with bilateral pleural effusion larger on the right with adjacent compressive atelectasis. Chest CTA was visualized and independently interpreted and agree with the interpretation. BNP on presentation was 1085. Hold home p.o. Lasix. Lasix 40 mg IV push ordered at emergency department and continued on twice daily basis. Transthoracic echocardiogram to evaluate left ventricular wall motion and systolic function. Monitor electrolytes and renal function Trend blood pressure Titrate diuretics Mika wrap to bilateral lower extremities Fluid restriction of 1500 mls daily cardiac diet Bilateral pleural effusion Right worse than left. Thoracentesis with diagnostic labs ordered. Serum LDH and serum protein ordered. History of ITP Platelets 40 Trend CBC. Sleep apnea Oxygen as needed ordered. Hypertension Blood pressure is stable. Home hydralazine and Imdur ordered. Trend blood pressures. Paroxysmal A. fib Status post ablation. 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 Also reportedly he had nosebleeding in the past. He was on anticoagulation before but it was stopped. And reportedly with ablation he was out of A. fib until in the past . However, 1-2 months ago while he was at [facility] he was found to be in Afib again. Would hold off further anticoagulation at this time especially as thoracentesis has been ordered. DVT prophylaxis: Not indicated as patient has ITP and platelet is 40. Charges/Coding Visit Charges Inpatient E&M: 32867 Init Hosp L3
--- NOTE | 2022-06-03 05:46 | US_ITS ---
PROCEDURE: ULTRASOUND GUIDED THORACENTESIS. DATE: 06/03/2022. INDICATION: Male, 67 years old. Right pleural effusion. PHYSICIAN: Bari Rose M.D. PROCEDURE: The risks, benefits, and alternatives to the procedure were explained to the patient. The specific risks of bleeding, infection, and pneumothorax requiring chest tube insertion were discussed and accepted. Written informed consent was obtained. Ultrasonographic evaluation of the right lower pleural space was carried out. An adequate pocket was identified. The patient was placed in the sitting, upright position. The overlying skin was prepped and draped in sterile fashion. 1% lidocaine was administered subcutaneously for local anesthesia. Under ultrasound guidance, a 5 Palestinian thoracentesis needle/catheter system was advanced into the right posterior lower pleural fluid collection. Approximately 650 mL of blood tinged tommy fluid was drained. The catheter was removed, and a sterile dressing was applied. A specimen was collected and sent to the laboratory for analysis, as requested by the referring clinician. The patient tolerated the procedure well. A chest x-ray was ordered. US/Thoracentesis W US IMPRESSION: Ultrasound-guided right thoracentesis. Electronically Signed: Bari Rose MD at 14:07 EDT ,
[2022-06-03] MEDS: hydrALAZINE 10 MG Tablet PO ×3 (06:20→21:40)
[2022-06-03 07:33] LABS: Absolute Lymphocyte Count 0.68 X10^3/uL (0.83-4.51); Absolute Neutrophil Count 4.6 X10^3/uL (2.0-7.7); Basophil# 0.05 X10^3/uL; Basophil% 0.8 % (0-1); Eosinophil# 0.14 X10^3/uL; Eosinophils% 2.3 % (0-5); Hematocrit 32.9 % (40-54); Hemoglobin 9.7 g/dL (13.0-16.5); Lymphocyte # 0.68 X10^3/ul (0.83-4.51); Lymphocyte % 11.1 % (19-41); Mean Corp Hgb Conc 29.5 g/dL (32-36); Mean Corpuscular Hgb 23.2 pg (27.0-32.0); Mean Corpuscular Volume 78.5 fL (80-94); Mean Platelet Vol. 11.2 fl (6.2-12.0); Monocyte# 0.58 X10^3/uL; Monocyte% 9.5 % (0-10); NRBC Flagged by Analyzer 0 % (0-5); Neutrophil # 4.63 X10^3/uL (2.7-7.7); Neutrophil % 75.5 % (47-70); POSITIVE COUNT YES; Platelet Count 37 K/mm3 (150-450); RBC Distribution Width CV 16.9 % (11.6-14.6); RBC Distribution Width SD 47.1 fl (35.1-43.9); Red Blood Count 4.19 M/mm3 (4.6-6.2); White Blood Count 6.1 K/mm3 (4.4-11.0)
[2022-06-03 07:36] LABS: Differential Indicated SCAN CRITERIA MET
[2022-06-03 07:44] LABS: ALB/GLOB Ratio 0.8 RATIO (0.9-2.4); Anion Gap 4 (5-15); BUN 21 mg/dL (7-18); BUN/Creat Ratio 14.3 RATIO (10-20); Calcium,Total 8.9 mg/dL (8.5-10.1); Chloride 105 mmol/L (98-107); Creatinine, Serum 1.47 mg/dL (0.70-1.30); EST Glomerular Filtration Rate 51 mL/min (>60); Est Glom Filt Rate - Afr Amer 61 mL/min (>60); Estimated Creatinine Clearance 44.34 ml/min; Globulin 3.6 g/dL (2.2-4.2); Glucose 95 mg/dL (74-106); LDH 177 U/L (87-241); Potassium 4.5 mmol/L (3.5-5.1); Protein, Total 6.3 g/dL (6.4-8.2); Sodium Level 138 mmol/L (136-145)
[2022-06-03 08:04] LABS: Microcytosis 1+; Platelet Estimate MKD DEC (ADEQ)
--- NOTE | 2022-06-03 08:34 | PN.HOSP_ITS ---
Objective Data Objective Data Vital Signs: Vital Signs Temp Pulse Resp BP Pulse Ox O2 Del Method O2 Flow Rate 36.6 C 89 18 142/115 H 99 Nasal Cannula 3 06/03/22 05:46 06/03/22 07:01 06/03/22 06:19 06/03/22 06:20 06/03/22 06:24 06/03/22 08:24 06/03/22 08:24 Oxygen Flow Rate (L/min) 3 Oxygen Delivery Method Nasal Cannula Weight: 109.316 kg Body Mass Index (BMI) 37.7 Lab / Micro Data Result Diagrams: 06/03/22 07:20 06/03/22 07:20 Labs: Laboratory Results - last 24 hr 06/02/22 23:50: WBC Cancelled, Corrected WBC Cancelled, RBC Cancelled, Hgb Cancelled, Hct Cancelled, MCV Cancelled, MCH Cancelled, MCHC Cancelled, RDW Std Deviation Cancelled, RDW Coeff of Mohit Cancelled, Plt Count Cancelled, MPV Cancelled, Immature Gran % (Auto) Cancelled, Neut % (Auto) Cancelled, Lymph % (Auto) Cancelled, [place] % (Auto) Cancelled, Eos % (Auto) Cancelled, Baso % (Auto) Cancelled, Absolute Neuts (auto) Cancelled, Absolute Lymphs (auto) Cancelled, Total Counted Cancelled, Neutrophils % (Manual) Cancelled, Band Neutrophils % Cancelled, Lymphocytes % (Manual) Cancelled, Monocytes % (Manual) Cancelled, Eosinophils % (Manual) Cancelled, Basophils % (Manual) Cancelled, Metamyelocytes % Cancelled, Myelocytes % Cancelled, Promyelocytes % Cancelled, Blast Cells % Cancelled, Plasma Cell % (Manual) Cancelled, Other Cells % Cancelled, Nucleated RBC % Cancelled, Nucleated RBCs/100 WBC Cancelled, Differential Comment Cancelled, Diff Path Review Cancelled, Hypersegmented Neuts Cancelled, Atypical Lymphocytes Cancelled, Reactive Lymphocytes Cancelled, Smudge Cells Cancelled, Toxic Granulation Cancelled, Toxic Vacuolation Cancelled, Dohle Bodies Cancelled, Jaycob Rods Cancelled, Platelet Estimate Cancelled, Plt Morphology Comment Cancelled, RBC Morphology Cancelled, Polychromasia Cancelled, Hypochromasia Cancelled, Poikilocytosis Cancelled, Basophilic Stippling Cancelled, Anisocytosis Cancelled, Microcytosis Cancelled, Macrocytosis Cancelled, Spherocytes Cancelled, Sickle Cells Cancelled, Target Cells Cancelled, Tear Drop Cells Cancelled, Ovalocytes Cancelled, Stomatocytes Cancelled, Oliveira-[place] Bodies Cancelled, Joshua Cells Cancelled, Bite Cells Cancelled, Crenated Cell Cancelled, Acanthocytes (Spur) Cancelled, Rouleaux Cancelled, Schistocytes Cancelled 06/02/22 23:50: D-Dimer Quant (PE/DVT) Cancelled 06/02/22 23:50: Sodium 138, Potassium 5.4 H, Chloride 105, Carbon Dioxide 28.0, Anion Gap 5, BUN 24 H, Creatinine 1.74 H, Estim Creat Clear Calc 37.46, Est GFR (MDRD) Af Amer 50 L, Est GFR (MDRD) Non-Af 42 L, BUN/Creatinine Ratio 13.8, Glucose 107 H, Calcium 9.0, Troponin I High Sens 50 06/03/22 00:28: B-Natriuretic Peptide 1085.0 H 06/03/22 00:28: WBC 6.9, RBC 4.15 L, Hgb 9.6 L, Hct 33.4 L, MCV 80.5, MCH 23.1 L , MCHC 28.7 L, RDW Std Deviation 47.5 H, RDW Coeff of Mohit 16.8 H, Plt Count 40 L*, MPV 11.8, Immature Gran % (Auto) 0.900, Neut % (Auto) 75.3 H, Lymph % (Auto) 13.0 L, [place] % (Auto) 8.2, Eos % (Auto) 2.2, Baso % (Auto) 0.4, Absolute Neuts (auto) 5.2, Absolute Lymphs (auto) 0.89, Nucleated RBC % 0, Differential Comment SCANNED, Diff Path Review March foll 06/03/22 00:28: D-Dimer Quant (PE/DVT) 4.73 H* 06/03/22 07:20: Sodium 138, Potassium 4.5, Chloride 105, Carbon Dioxide 29.0, An ion Gap 4 L, BUN 21 H, Creatinine 1.47 H, Estim Creat Clear Calc 44.34, Est GFR (MDRD) Af Amer 61, Est GFR (MDRD) Non-Af 51 L, BUN/Creatinine Ratio 14.3, Glucose 95, Calcium 8.9, Lactate Dehydrogenase 177, Total Protein 6.3 L, Globulin 3.6, Albumin/Globulin Ratio 0.8 L 06/03/22 07:20: WBC 6.1, RBC 4.19 L, Hgb 9.7 L, Hct 32.9 L, MCV 78.5 L, MCH 23.2 L, MCHC 29.5 L, RDW Std Deviation 47.1 H, RDW Coeff of Mohit 16.9 H, Plt Count 37 L*, MPV 11.2, Immature Gran % (Auto) 0.800, Neut % (Auto) 75.5 H, Lymph % (Auto) 11.1 L, [place] % (Auto) 9.5, Eos % (Auto) 2.3, Baso % (Auto) 0.8, Absolute Neuts (auto) 4.6, Absolute Lymphs (auto) 0.68 L, Nucleated RBC % 0, Diff Path Review March, Platelet Estimate MKD DEC, Microcytosis 1+ Micro: Microbiology 06/02/22 23:44 Nasal Secretion SARS-CoV-2 & FLU Antigen (Rapid) - Final Radiography Diagnostic Testing: Radiology Impression Chest X-Ray 06/03/22 00:00 IMPRESSION: Developing CHF/volume overload. Electronically Signed: Chris Ruiz MD at 0:59 EDT , Chest CTA 06/03/22 01:15 IMPRESSION: Negative for PE. No thoracic aortic dissection identified. Bilateral pleural effusions, larger on the right, with adjacent compressive atelectasis. No pneumonia. Electronically Signed: Anil Powell MD at 2:46 EDT , Assessment & Plan Assessment/Plan (1) Heart failure: (2) Pleural effusion: (3) History of ITP: (4) Sleep apnea: PLAN: Plan Acute Exacerbation of heart failure Unclear whether reduced or preserved ejection fraction Place on monitored bed at the PCU Weight on admission to the floor; and then daily Strict I&O's CXR was visualized and independently interpreted and I agree with radiologist interpretation of volume overload.independently reviewed Chest CTA with bilateral pleural effusion larger on the right with adjacent compressive atelectasis. Chest CTA was visualized and independently interpreted and agree with the interpretation. BNP on presentation was 1085. Hold home p.o. Lasix. Lasix 40 mg IV push ordered at emergency department and continued on twice daily basis. Transthoracic echocardiogram to evaluate left ventricular wall motion and systolic function. Monitor electrolytes and renal function Trend blood pressure Titrate diuretics Mika wrap to bilateral lower extremities Fluid restriction of 1500 mls daily cardiac diet Bilateral pleural effusion Right worse than left. Thoracentesis with diagnostic labs ordered. Serum LDH and serum protein ordered. History of ITP Platelets 40 Trend CBC. Sleep apnea Oxygen as needed ordered. Hypertension Blood pressure is stable. Home hydralazine and Imdur ordered. Trend blood pressures. Paroxysmal A. fib Status post ablation. 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 Also reportedly he had nosebleeding in the past. He was on anticoagulation before but it was stopped. And reportedly with ablation he was out of A. fib until in the past . However, 1-2 months ago while he was at [facility] he was found to be in Afib again. Would hold off further anticoagulation at this time especially as thoracentesis has been ordered and given his thrombocytopenia DVT prophylaxis: Not indicated as patient has ITP and platelet is 40.
[2022-06-03] MEDS: Aspirin 81 MG TAB.CHEW PO (09:53)
[2022-06-03] MEDS: Furosemide 40 MG/4 ML Vial IV ×2 (09:54→17:12)
[2022-06-03] MEDS: Polyethylene Glycol 3350 17 GM PACKET PO (09:54)
[2022-06-03] MEDS: Clotrimazole 1 APPLIC Tube TOPICAL ×2 (09:54→21:39)
[2022-06-03] MEDS: Pantoprazole Sodium 40 MG Tablet PO ×2 (09:55→21:40)
[2022-06-03] MEDS: Thiamine Hydrochloride 100 MG Tablet PO ×3 (09:55→21:40)
[2022-06-03] MEDS: Doxepin Hcl 25 MG Capsule PO (09:56)
[2022-06-03] MEDS: Metoprolol(XL)Succ 25 MG Tablet PO (09:56)
--- NOTE | 2022-06-03 10:36 | CASEMGMT ---
Addendum entered by Chantal Flores 06/03/22 10:41: Vielka from [facility] returned Chantal D/C assistant sales center manager phone call. Patient had a home evaluation with therapy yesterday and did great. Patient was suppose to D/C from the facility on 06/04/22. [facility] can take patient back if he needs to return. Vielka made Chantal D/C assistant sales center manager aware that pre-cert would be needed to bring patient back. VIJAYA Grubbs has been notified. Original Note: Discharge Food Processing Plant Manager Chantal Discharge Food Processing Plant Manager called Vielka at [facility] to get some information on patients stay. Left a voicemail for Vielka. Will follow up. Chantal Flores Discharge Food Processing Plant Manager
--- NOTE | 2022-06-03 11:43 | PN.HOSP_ITS ---
Documented by User: Nora Gonzalez NP, [employer]ERALOG[employer] TEACHER-C 06/03/22 12:16 Objective Data Objective Data Vital Signs: Vital Signs Temp Pulse Resp BP Pulse Ox O2 Del Method O2 Flow Rate 97.3 F L 87 20 H 101/82 H 99 Nasal Cannula 3 06/03/22 09:49 06/03/22 09:56 06/03/22 09:49 06/03/22 09:56 06/03/22 09:49 06/03/22 09:49 06/03/22 09:49 Oxygen Flow Rate (L/min) 3 Oxygen Delivery Method Nasal Cannula Weight: 241 lb Body Mass Index (BMI) 37.7 Lab / Micro Data Result Diagrams: 06/03/22 07:20 06/03/22 07:20 Labs: Laboratory Results - last 24 hr 06/02/22 23:50: WBC Cancelled, Corrected WBC Cancelled, RBC Cancelled, Hgb Cancelled, Hct Cancelled, MCV Cancelled, MCH Cancelled, MCHC Cancelled, RDW Std Deviation Cancelled, RDW Coeff of Mohit Cancelled, Plt Count Cancelled, MPV Cancelled, Immature Gran % (Auto) Cancelled, Neut % (Auto) Cancelled, Lymph % (Auto) Cancelled, [place] % (Auto) Cancelled, Eos % (Auto) Cancelled, Baso % (Auto) Cancelled, Absolute Neuts (auto) Cancelled, Absolute Lymphs (auto) Cancelled, Total Counted Cancelled, Neutrophils % (Manual) Cancelled, Band Neutrophils % Cancelled, Lymphocytes % (Manual) Cancelled, Monocytes % (Manual) Cancelled, Eosinophils % (Manual) Cancelled, Basophils % (Manual) Cancelled, Metamyelocytes % Cancelled, Myelocytes % Cancelled, Promyelocytes % Cancelled, Blast Cells % Cancelled, Plasma Cell % (Manual) Cancelled, Other Cells % Cancelled, Nucleated RBC % Cancelled, Nucleated RBCs/100 WBC Cancelled, Differential Comment Cancelled, Diff Path Review Cancelled, Hypersegmented Neuts Cancelled, Atypical Lymphocytes Cancelled, Reactive Lymphocytes Cancelled, Smudge Cells Cancelled, Toxic Granulation Cancelled, Toxic Vacuolation Cancelled, Dohle Bodies Cancelled, Jaycob Rods Cancelled, Platelet Estimate Cancelled, Plt Morphology Comment Cancelled, RBC Morphology Cancelled, Polychromasia Cancelled, Hypochromasia Cancelled, Poikilocytosis Cancelled, Basophilic Stippling Cancelled, Anisocytosis Cancelled, Microcytosis Cancelled, Macrocytosis Cancelled, Spherocytes Cancelled, Sickle Cells Cancelled, Target Cells Cancelled, Tear Drop Cells Cancelled, Ovalocytes Cancelled, Stomatocytes Canc elled, Oliveira-Walthill Bodies Cancelled, Joshua Cells Cancelled, Bite Cells Cancelled, Crenated Cell Cancelled, Acanthocytes (Spur) Cancelled, Rouleaux Cancelled, Schistocytes Cancelled 06/02/22 23:50: D-Dimer Quant (PE/DVT) Cancelled 06/02/22 23:50: Sodium 138, Potassium 5.4 H, Chloride 105, Carbon Dioxide 28.0, Anion Gap 5, BUN 24 H, Creatinine 1.74 H, Estim Creat Clear Calc 37.46, Est GFR (MDRD) Af Amer 50 L, Est GFR (MDRD) Non-Af 42 L, BUN/Creatinine Ratio 13.8, Glucose 107 H, Calcium 9.0, Troponin I High Sens 50 06/03/22 00:28: B-Natriuretic Peptide 1085.0 H 06/03/22 00:28: WBC 6.9, RBC 4.15 L, Hgb 9.6 L, Hct 33.4 L, MCV 80.5, MCH 23.1 L , MCHC 28.7 L, RDW Std Deviation 47.5 H, RDW Coeff of Mohit 16.8 H, Plt Count 40 L*, MPV 11.8, Immature Gran % (Auto) 0.900, Neut % (Auto) 75.3 H, Lymph % (Auto) 13.0 L, Mariposa % (Auto) 8.2, Eos % (Auto) 2.2, Baso % (Auto) 0.4, Absolute Neuts (auto) 5.2, Absolute Lymphs (auto) 0.89, Nucleated RBC % 0, Differential Comment SCANNED, Diff Path Review March foll 06/03/22 00:28: D-Dimer Quant (PE/DVT) 4.73 H* 06/03/22 07:20: Sodium 138, Potassium 4.5, Chloride 105, Carbon Dioxide 29.0, Anion Gap 4 L, BUN 21 H, Creatinine 1.47 H, Estim Creat Clear Calc 44.34, Est GFR (MDRD) Af Amer 61, Est GFR (MDRD) Non-Af 51 L, BUN/Creatinine Ratio 14.3, Glucose 95, Calcium 8.9, Lactate Dehydrogenase 177, Total Protein 6.3 L, Globulin 3.6, Albumin/Globulin Ratio 0.8 L 06/03/22 07:20: WBC 6.1, RBC 4.19 L, Hgb 9.7 L, Hct 32.9 L, MCV 78.5 L, MCH 23.2 L, MCHC 29.5 L, RDW Std Deviation 47.1 H, RDW Coeff of Mohit 16.9 H, Plt Count 37 L*, MPV 11.2, Immature Gran % (Auto) 0.800, Neut % (Auto) 75.5 H, Lymph % (Auto) 11.1 L, Marip[place] % (Auto) 9.5, Eos % (Auto) 2.3, Baso % (Auto) 0.8, Absolute Neuts (auto) 4.6, Absolute Lymphs (auto) 0.68 L, Nucleated RBC % 0, Diff Path Review March foll, Platelet Estimate MKD DEC, Microcytosis 1+ Micro: Microbiology 06/02/22 23:44 Nasal Secretion SARS-CoV-2 & FLU Antigen (Rapid) - Final Radiography Diagnostic Testing: Radiology Impression Chest X-Ray 06/03/22 00:00 IMPRESSION: Developing CHF/volume overload. Electronically Signed: Chris Ruiz MD at 0:59 EDT , Chest CTA 06/03/22 01:15 IMPRESSION: Negative for PE. No thoracic aortic dissection identified. Bilateral pleural effusions, larger on the right, with adjacent compressive atelectasis. No pneumonia. Electronically Signed: Anil Powell MD at 2:46 EDT , Physical Exam Const alert, oriented x3 and no apparent distress Orientation / Consciousness: awake, oriented to person, oriented to place and oriented to time HEENT normocephalic and moist oral mucous membranes Eyes PERRL, EOMs intact bilaterally and conjunctivae normal Neck no lymphadenopathy Resp Auscultation: crackles and diminished lung sounds Cardio regular rate, regular rhythm and no murmurs Peripheral Pulses: pulses 2+ throughout GI normal to inspection, nondistended, normoactive bowel sounds, non-tender and non-distended Extremity normal to inspection General Extremity: edema bilateral lower extremity (Mika wraps in place) Skin no rashes or lesions noted Lesions: no lesions Rashes: no rashes Trauma: no lacerations or abrasions Neuro CN's II-XII intact bilaterally, no focal motor deficits, no sensory deficits noted and deep tendon reflexes 2+ bilaterally Psych mental status grossly normal and affect normal Assessment & Plan Assessment/Plan (1) Congestive heart failure: PLAN: Plan 1. Acute on chronic combined systolic and diastolic heart failure- echocardiogram at [facility] 04/02/2022 with EF 45%, grade 3 diastolic dysfunction. BNP greater than 1000. IV Lasix. Strict I&O. Daily weight. Check TSH, mag. Repeat echocardiogram canceled given recent study. 2. Bilateral pleural effusions-secondary to #1 versus underlying malignancy given recent finding of brain lesions. Right-sided thoracentesis ordered. 3. Acute hypoxia secondary to CHF and bilateral pleural effusions-patient on supplemental oxygen during recent admission, unclear if he was wearing oxygen at SNF. Not documented to be hypoxic. Continue supplemental oxygen to maintain O2 sat above 90%. Wean as tolerated. 4. Brain lesion-noted to have multiple ring-enhancing lesions bilateral cerebral hemispheres concerning for metastatic disease during recent admission. Follow- up with neurosurgery/oncology. Per documentation, patient declined biopsy during admission. 5. Chronic kidney disease stage IIIb-appears at baseline, trend BMP. 6. Paroxysmal atrial fibrillation-previously on Eliquis which was held due to recurrent epistaxis, anemia/thrombocytopenia, as well as brain lesions. Continue metoprolol. 7. Longstanding history of ITP-previously on Promacta. Evaluated by hematology at [facility]. Patient was cleared to resume anticoagulation per hematology standpoint. Trend CBC. If platelets trend down, will consult hematology. 8. Hypertension-stable, continue hydralazine, isosorbide, Lasix, metoprolol. 9. Alcohol abuse-patient has been in hospital/rehab for 2 months. No active withdrawal. 10. CINDY-not on CPAP. DVT prophylaxis-SCDs This patient was seen by NATHALIE Hernandez under the supervision of Dr. Braga. Time spent examining patient, reviewing data and subsequent management of care: 17 minutes Documented by User: Dr. Rashad Braga, DO 06/03/22 15:13 Subjective Subjective Feels well. Wants to go home. Objective Data Lab / Micro Data Result Diagrams: 06/03/22 07:20 06/03/22 07:20 Assessment & Plan Assessment/Plan (1) Congestive heart failure: PLAN: Plan 1. Acute on chronic combined systolic and diastolic heart failure- echocardiogram at [facility] 04/02/2022 with EF 45%, grade 3 diastolic dysfunction. BNP greater than 1000. IV Lasix. Strict I&O. Daily weight. Check TSH, mag. Repeat echocardiogram canceled given recent study. 2. Bilateral pleural effusions-secondary to #1 versus underlying malignancy given recent finding of brain lesions. Right-sided thoracentesis ordered. 3. Acute hypoxia secondary to CHF and bilateral pleural effusions-patient on supplemental oxygen during recent admission, unclear if he was wearing oxygen at SNF. Not documented to be hypoxic. Continue supplemental oxygen to maintain O2 sat above 90%. Wean as tolerated. 4. Brain lesion-noted to have multiple ring-enhancing lesions bilateral cerebral hemispheres concerning for metastatic disease during recent admission. Follow- up with neurosurgery/oncology. Per documentation, patient declined biopsy during admission. 5. Chronic kidney disease stage IIIb-appears at baseline, trend BMP. 6. Paroxysmal atrial fibrillation-previously on Eliquis which was held due to recurrent epistaxis, anemia/thrombocytopenia, as well as brain lesions. Continue metoprolol. 7. Longstanding history of ITP-previously on Promacta. Evaluated by hematology at [facility]. Patient was cleared to resume anticoagulation per hematology standpoint. Trend CBC. If platelets trend down, will consult hematology. 8. Hypertension-stable, continue hydralazine, isosorbide, Lasix, metoprolol. 9. Alcohol abuse-patient has been in hospital/rehab for 2 months. No active withdrawal. 10. CINDY-not on CPAP. DVT prophylaxis-SCDs This patient was seen by NATHALIE Hernandez under the supervision of Dr. Braga. Time spent examining patient, reviewing data and subsequent management of care: 17 minutes Patient seen and examined independently. Data and vitals reviewed. I agree with the above note by the nurse practitioner. Patient anxious to go home. Patient very concerned about his rehab. He is concerned about losing strength in his left lower extremity. No acute distress and afebrile. Heart rate regular rate and rhythm plus S1-S2 with a murmurs Rubs. Lungs have bibasilar crackles. Abdomen is soft nontender nondistended normal bowel sounds. No hepatosplenomegaly. Extremities are trace lower extremity edema. Assessment and plan 1. Acute HFrEF EF 45% from 2D echocardiogram at [facility] on April 02 of this year Continue with furosemide. Additionally continue with metoprolol succinate, isosorbide, hydralazine. Patient not on MIKA/ARB given CKD 2. Pleural effusion. Suspect transudative due to CHF but patient has disease concerning for metastatic lesions in his brain so an exudative/malignant effusion cannot be ruled out. Patient did have CT of chest did not show any malignancy. 3. Brain lesions Noted on MRI at [facility]. Patient declined biopsy Recommend follow-up with neurosurgery as well as oncology as outpatient. Greater than 40 minutes of which greater than for percent of time was reviewing [facility] records at [facility] and reviewing the patient's current data and documentation. Also discussing with the patient at bedside. Patient was dismissive of relieving statements related with his fall which is could be but given the concern for malignancy it should be further evaluated. Charges/Coding Procedures Hospitalists Procedures: Other Procedure - See Report (Nonbillable rounding as patient was admitted after midnight.)
[2022-06-03 12:53] LABS: Magnesium 2.4 mg/dL (1.6-2.6); Thyroid Stim Hormone (TSH) 2.43 uIU/mL (0.358-3.74)
[2022-06-03 13:02] LABS: Pathologist Review Reviewed
[2022-06-03] MEDS: Lidocaine 2% (20 ml mdv) 20 ML Vial INFILT (13:23)
--- NOTE | 2022-06-03 13:45 | RAD_ITS ---
STUDY: X-RAY CHEST REASON FOR EXAM: Male, 67 years old. Post thora TECHNIQUE: AP inspiration and expiration views. COMPARISON: Comparison is made with prior study dated 06/03/2022. FINDINGS: The patient is status post right thoracentesis. No evidence of pneumothorax. RAD/Chest Insp/Exp 2 View IMPRESSION: Status post right thoracentesis. There is no evidence of pneumothorax. Electronically Signed: Bari Rose MD at 13:49 EDT ,
[2022-06-03 13:47] LABS: Cytology, Body Fluid / CSF SEE PATHOLOGY REPORT
[2022-06-03] MEDS: Ursodiol 250 MG Tablet PO ×2 (14:07→21:40)
[2022-06-03 14:12] LABS: Body Fluid Mononuclear WBC # 0.247 10^3/uL; Body Fluid Mononuclear WBC % 64.1 %; Body Fluid Polynuclear WBC # 0.138 10^3/uL; Body Fluid Polynuclear WBC % 35.9 %; Body Fluid Total Cells Counted 0.437 10^3/ul; Red Cell Count/Body Fluid 0.021 10^6/ul; White Blood Count/Body Fluid 0.385 10^3/uL
[2022-06-03 14:21] LABS: Auto B Fluid Analyzer BKGD Ct COUNTS W/IN LIMITS (W/IN LIMITS); Color/Body Fluid PINK
[2022-06-03 14:22] LABS: Appearance/Body Fluid CLOUDY
[2022-06-03 14:23] LABS: Source- Body Fluid THORACENTESIS
[2022-06-03 14:59] LABS: Lymphocytes 24 %; Macrophages 45 %; Monocytes 1 %; Neutrophil (Segs) 28 %; Other Cell Type/BF 2 %
[2022-06-03 15:02] LABS: Glucose, Body Fluid 119 mg/dL (40-70); LDH,Body Fluid 69 Units/l (Not Establ.); Protein, Body Fluid 1.8 g/dL (Not Establ.)
[2022-06-03 15:03] LABS: Body Fluid QC Type(s) BF1
--- NOTE | 2022-06-03 16:01 | CASEMGMT ---
Social Work Consult: Discharge Planning Referral source: Nursing staff This social work associate met with patient in room. Introduced self and social work associate role. Patient agreeable to speak with this social work associate. This social work associate broached topic of discharge planning. Patient states to have been at [facility] prior to hospitalization and to have had a planned discharge date of 06/04/2022. Patient states to not want to return to [facility] and plans to discharge to the community. Patient states main concern on returning to home is help in the mornings and evenings along with meals. Patient reports to have called multiple home health companies today and no one will come to my home. This social work associate to provide patient with list of private duty aides in the area. Patient thanked this social work associate and plans to reach out to set up help in the home in the AM and PM. Patient states to be interested in home health care for skilled services and to have thought that [facility] set up home health for patient but not sure of the company. Patient agreeable to this social work associate reaching out to [facility] to establish home health agency. This social work associate broached conversation about home delivered meals for patient and provided patient with information on [employer] Wheels and [employer]. Patient then states to believe that neighbors are cooking for patient and meals might be taken care of for awhile. Patient states plan to reach out to home delivered meal company if needed. Patient denies any other concerns on returning to the community. Patient confirms multiple times to not plan to return to [facility] and that this social work associate can cancel patient bed. Active support and listening provided. Telephone call to Vielka Benz. Vielka reports that patient home health company is [facility]. This social work associate communicating that patient is not planning to return to [facility]. PLAN: Home with home health care. Will continue to follow. Akin INMAN, ADE
[2022-06-03] MEDS: 0.9% Saline Lock 10 ML Syringe IV (21:39)
[2022-06-03] MEDS: MELATONIN 3 MG TABLET PO (21:40)
[2022-06-03] MEDS: oxyCODONE 5 MG Tablet PO (23:44)
[2022-06-04] VITALS (11 sets, daily range): BP systolic 115–131; BP diastolic 76–90; PULSE 90–103; RESP 18–20; TEMP 36.3–36.8; O2SAT 88–97
[2022-06-04] MEDS: Ursodiol 250 MG Tablet PO (05:54)
[2022-06-04] MEDS: hydrALAZINE 10 MG Tablet PO (05:54)
[2022-06-04] MEDS: Thiamine Hydrochloride 100 MG Tablet PO (05:54)
[2022-06-04 07:03] LABS: Absolute Lymphocyte Count 0.81 X10^3/uL (0.83-4.51); Absolute Neutrophil Count 4.2 X10^3/uL (2.0-7.7); Basophil# 0.04 X10^3/uL; Basophil% 0.7 % (0-1); Eosinophil# 0.15 X10^3/uL; Eosinophils% 2.7 % (0-5); Hematocrit 33.3 % (40-54); Hemoglobin 9.7 g/dL (13.0-16.5); Lymphocyte # 0.81 X10^3/ul (0.83-4.51); Lymphocyte % 14.3 % (19-41); Mean Corp Hgb Conc 29.1 g/dL (32-36); Mean Corpuscular Hgb 23.1 pg (27.0-32.0); Mean Corpuscular Volume 79.3 fL (80-94); Mean Platelet Vol. 11.8 fl (6.2-12.0); Monocyte# 0.45 X10^3/uL; NRBC Flagged by Analyzer 0 % (0-5); Neutrophil # 4.16 X10^3/uL (2.7-7.7); Neutrophil % 73.6 % (47-70); POSITIVE COUNT YES; RBC Distribution Width CV 16.8 % (11.6-14.6); RBC Distribution Width SD 47.3 fl (35.1-43.9); White Blood Count 5.7 K/mm3 (4.4-11.0)
[2022-06-04 07:10] LABS: Differential Indicated SCAN CRITERIA MET; Platelet Count 44 K/mm3 (150-450)
[2022-06-04 07:24] LABS: Differential Comment SCANNED; Platelet Estimate MKD DEC (ADEQ)
[2022-06-04 07:27] LABS: Anion Gap 5 (5-15); BUN 23 mg/dL (7-18); BUN/Creat Ratio 13.9 RATIO (10-20); Calcium,Total 8.9 mg/dL (8.5-10.1); Chloride 104 mmol/L (98-107); Creatinine, Serum 1.65 mg/dL (0.70-1.30); EST Glomerular Filtration Rate 44 mL/min (>60); Est Glom Filt Rate - Afr Amer 53 mL/min (>60); Glucose 86 mg/dL (74-106); Sodium Level 139 mmol/L (136-145)
--- NOTE | 2022-06-04 08:09 | PN.HOSP_ITS ---
Subjective Subjective Breathing well. Anxious to go home. Objective Data Objective Data Vital Signs: Vital Signs Temp Pulse Resp BP Pulse Ox O2 Del Method O2 Flow Rate 36.8 C 94 20 H 131/76 H 95 Room Air 2 06/04/22 03:10 06/04/22 07:01 06/04/22 05:49 06/04/22 05:54 06/04/22 07:22 06/04/22 07:22 06/04/22 03:11 Oxygen Flow Rate (L/min) 2 Oxygen Delivery Method [1] Room Air Oxygen Delivery Method [4] Room Air Oxygen Delivery Method [3] Room Air Oxygen Delivery Method [2] Room Air Oxygen Delivery Method Room Air Weight: 110.7 kg Body Mass Index (BMI) 37.7 Intake & Output: Intake and Output for Last 24 Hours 06/02/22 06/03/22 06/04/22 23:59 23:59 23:59 Intake Total 1020 / 1020 200 / 200 Output Total 2750 / 2750 300 / 300 Balance -1730 / -1730 -100 / -100 Lab / Micro Data Result Diagrams: 06/04/22 06:13 06/04/22 06:13 Labs: Laboratory Results - last 24 hr 06/03/22 00:28: Diff Path Review Reviewed 06/03/22 07:20: Magnesium 2.4, TSH 2.43 06/03/22 07:20: Lactate Dehydrogenase Cancelled, Total Protein Cancelled, Globulin Cancelled, Albumin/Globulin Ratio Cancelled 06/03/22 13:14: Fluid Glucose 119 H, Fluid Total Protein 1.8, Fluid LDH 69 06/03/22 13:14: Fluid Source THORACENTESIS, Fluid Color PINK, Fluid Appearance CLOUDY, Fluid WBC 0.385, Fluid RBC 0.021, Fluid Tot Cell Count 0.437, Fld Polynuclear WBCs # 0.138, Fld Polynuclear WBCs % 35.9, Fluid Mononuclear WBCs 0.247, Fld Mononuclear WBCs % 64.1, Fluid Neutrophils 28, Fluid Lymphocytes 24, Fluid Monocytes 1, Fluid Macrophages 45, Fluid Other Cells 2, Fl Pathologist Comment May follow, Fluid Comment 2 SEE COMMENT 06/04/22 06:13: WBC 5.7, RBC 4.20 L, Hgb 9.7 L, Hct 33.3 L, MCV 79.3 L, MCH 23.1 L, MCHC 29.1 L, RDW Std Deviation 47.3 H, RDW Coeff of Mohit 16.8 H, Plt Count 44 L*, MPV 11.8, Immature Gran % (Auto) 0.700, Neut % (Auto) 73.6 H, Lymph % (Auto) 14.3 L, [place] % (Auto) 8.0, Eos % (Auto) 2.7, Baso % (Auto) 0.7, Absolute Neuts (auto) 4.2, Absolute Lymphs (auto) 0.81 L, Nucleated RBC % 0, Differential Comment SCANNED, Diff Path Review March, Platelet Estimate MKD 06/04/22 06:13: Sodium 139, Potassium 4.0, Chloride 104, Carbon Dioxide 30.0, Anion Gap 5, BUN 23 H, Creatinine 1.65 H, Estim Creat Clear Calc 39.50, Est GFR (MDRD) Af Amer 53 L, Est GFR (MDRD) Non-Af 44 L, BUN/Creatinine Ratio 13.9, Glucose 86, Calcium 8.9 Micro: Microbiology 06/03/22 13:14 Fluid - Thoracentesis Fluid Gram Stain - Final 06/02/22 23:44 Nasal Secretion SARS-CoV-2 & FLU Antigen (Rapid) - Final Radiography Diagnostic Testing: Radiology Impression Thoracentesis Ultrasound 06/03/22 05:46 IMPRESSION: Ultrasound-guided right thoracentesis. Electronically Signed: Bari Rose MD at 14:07 EDT , Chest X-Ray 06/03/22 13:45 IMPRESSION: Status post right thoracentesis. There is no evidence of pneumothorax. Electronically Signed: Bari Rose MD at 13:49 EDT , Physical Exam Const alert and no apparent distress Resp normal respiratory effort, no retractions, no use of accessory muscles and clear to auscultation bilaterally Cardio regular rate, regular rhythm, S1 normal heart sound and S2 normal heart sound GI normal to inspection, nondistended, normoactive bowel sounds, soft to palpation, non-tender and non-distended Assessment & Plan Assessment/Plan (1) Congestive heart failure: (2) Pleural effusion: (3) Hypoxia: (4) History of ITP: PLAN: Plan 1. Acute HFrEF EF 45% from 2D echocardiogram at [facility] on April 02 of this year Continue with metoprolol succinate, isosorbide, hydralazine. Patient not on WAYNE/ARB given CKD Change furosemide to 40 PO BID 2. Pleural effusion. Appears transudative based on Light's criteria thoracentesis 06/03 that removed 650cc fluid. Likely 2/2 CHF 3. Brain lesions Noted on MRI at [facility]. Patient declined biopsy Recommend follow-up with neurosurgery as well as oncology as outpatient. 4. Acute hypoxic respiratory failure resolved, now on room air 2/2 CHF and pleural effusions 5. ITP Has been present for years. Per the pt, his high normal is 80k, but normally bw 60-70k, but drifts down to 20-30k. generally does not take anything, but has not followed with hematology in years continue to OAC for now given thrombocytopenia 6. Paroxysmal atrial fibrillation- previously on Eliquis which was held due to recurrent epistaxis, anemia/thr ombocytopenia, as well as brain lesions. Continue metoprolol. 7. Chronic conditions: * Chronic kidney disease stage IIIb-appears at baseline, trend BMP. * Hypertension-stable, continue hydralazine, isosorbide, Lasix, metoprolol. * Alcohol abuse-patient has been in hospital/rehab for 2 months. No active withdrawal. * CINDY-not on CPAP. DC home w [facility] (originally, was to be discharged from rehab today)
[2022-06-04] MEDS: Polyethylene Glycol 3350 17 GM PACKET PO (10:12)
[2022-06-04] MEDS: Doxepin Hcl 25 MG Capsule PO (10:13)
[2022-06-04] MEDS: Aspirin 81 MG TAB.CHEW PO (10:13)
[2022-06-04] MEDS: Isosorbide Mononitrate 30 MG Tablet PO (10:13)
[2022-06-04] MEDS: Pantoprazole Sodium 40 MG Tablet PO (10:13)
[2022-06-04] MEDS: Metoprolol(XL)Succ 25 MG Tablet PO (10:13)
[2022-06-04] MEDS: Furosemide 40 MG Tablet PO (10:13)
[2022-06-04] MEDS: Clotrimazole 1 APPLIC Tube TOPICAL (10:17)
--- NOTE | 2022-06-04 10:21 | CASEMGMT ---
Addendum entered by Liz Barroso 06/04/22 10:30: Call to Mendez at [facility] and he states they can still accept pt for SN, PT/OT and is aware of pt discharge today. D/C summary/instructions to be faxed to [facility] once obtained. Bryan MORRISON CM Original Note: Per Humera LILLY, pt was to be set up with [facility] at discharge from [facility] and pt would like to be sent home with same [facility] for SN, PT/OT. Order placed and referral with new order faxed to [facility]. CM to follow. Bryan MORRISON CM
--- NOTE | 2022-06-04 10:42 | NURSING ---
Pt asks this nurse when the heart monitor and IV can come out, this nurse explains that there must be a discharge order from the doctor before those items can be removed. Pt asks does the Dr. know I have them on? This nurse explained Yes, he does. He ordered it for you. Pt states ok you don't have to get so excited. This nurse explains that I am just trying to explain the discharge process to the patient and help him, and projects voice out for pt to hear him from across the room. Pt states I don't think you and I are hitting it off This nurse expresses he is just trying to help the patient, and explain things for pt to understand. Pt does appear anxious to leave facility as he was supposed to be DC from [facility] today. This nurse expresses that it could be this afternoon until the full discharge is ready for the pt. Pt states that he now understands. Will continue to monitor
--- NOTE | 2022-06-04 12:16 | DCINST_ITS ---
Discharge Instructions Diet Discharge Diet: Low fat / Low cholesterol and 8 Cup Fluid Restriction Dressing / Incision Call your doctor if you observe: Shortness of breath and Swelling in the ankles Follow Up Care Test Results: Test results from this visit will be discussed in further detail at your follow- up appointment, if applicable. Discharge Plan Admission Admit Date/Time: 06/03/22 03:13 Primary Reason for Your Visit: CHF exacerbation Attending Provider: Rashad Braga Primary Care Provider: Elif Rivera NP Consulting Providers: Carson Levy Instructions Patient Instructions: CLAUS RN Thoracentesis Dc, Heart Failure Signs of Flare-Up, Heart Failure Making Changes ..., Heart Failure Discharge Orders/Prescriptions Prescriptions: New acetaminophen [Tylenol] 325 mg Tablet 650 mg PO Q6H PRN PRN (Reason: Pain Score 1-10/Temp > 100.7 F) Qty: 0 0RF potassium chloride 10 mEq capsule, extended release 10 meq PO DAILY Qty: 30 0RF Continued hydroxychloroquine 200 mg tablet 200 mg PO BID thiamine HCl (vitamin B1) 100 mg Tablet 100 mg PO TID melatonin 3 mg Tablet 3 mg PO QHS bisacodyl 5 mg Tablet,Delayed Release (Dr/Ec) 10 mg PO QHS polyethylene glycol 3350 [Miralax] 17 gram/dose Powder 19 g PO DAILY aspirin 81 mg Capsule 81 mg PO DAILY albuterol sulfate [Ventolin HFA] 90 mcg/actuation HFA aerosol inhaler 2 puff inhalation Q6H PRN PRN (Reason: Shortness Of Breath) hydralazine 10 mg Tablet 10 mg PO TID Qty: 90 0RF doxepin 25 mg Capsule 25 mg PO DAILY Qty: 30 0RF isosorbide mononitrate 30 mg Tablet Extended Release 24 Hr 30 mg PO DAILY Qty: 30 0RF ursodiol 300 mg Capsule 300 mg PO TID Qty: 90 0RF clotrimazole [Antifungal (clotrimazole)] 1 % Cream 1 applic TOPICAL BID Qty: 15 0RF pantoprazole [address] For Susp In Packet 40 mg PO BID Qty: 30 0RF Changed furosemide 40 mg tablet 40 mg PO BID Qty: 60 0RF metoprolol succinate 50 mg tablet extended release 24 hr 25 mg PO QDAY Qty: 30 0RF Discontinued oxycodone [Roxicodone] 5 mg Tablet 5 mg PO Q6H PRN (Reason: Pain) diclofenac sodium 1 % Gel 1 ea TOPICAL TID Rx Instructions: bilateral knees prednisone 20 mg tablet 5 mg PO DAILY Referrals / Follow Up: Elif Rivera NP, [facility] [Primary Care Provider] - Within 2 Weeks Disposition Disposition (needs filled in before D/C Order can be placed): Home Health Service
--- NOTE | 2022-06-04 12:23 | CASEMGMT ---
Per Shelton RN, pt does not qualify for home oxygen. Bryan MORRISON CM
--- NOTE | 2022-06-04 12:27 | DS.PCM_ITS ---
Providers Date of Admission: 06/03/22 Primary Care Physician: NATHALIE Garcia Reason For Visit: ACUTE CHF Diagnosis Discharge Diagnosis (1) Congestive heart failure: Status: Acute Code(s): I50.9 - Heart failure, unspecified (2) Pleural effusion: Status: Acute Code(s): J90 - Pleural effusion, not elsewhere classified (3) Hypoxia: Status: Acute Code(s): R09.02 - Hypoxemia (4) History of ITP: Status: Acute Code(s): Z86.2 - Personal history of diseases of the blood and blood-forming organs and certain disorders involving the immune mechanism Plan 1. Acute HFrEF EF 45% from 2D echocardiogram at [facility] on April 02 of this year Continue with metoprolol succinate, isosorbide, hydralazine. Patient not on WAYNE/ARB given CKD Change furosemide to 40 PO BID 2. Pleural effusion. Appears transudative based on Light's criteria thoracentesis 06/03 that removed 650cc fluid. Likely 2/2 CHF 3. Brain lesions Noted on MRI at [facility]. Patient declined biopsy Recommend follow-up with neurosurgery as well as oncology as outpatient. 4. Acute hypoxic respiratory failure resolved, now on room air 2/2 CHF and pleural effusions 5. ITP Has been present for years. Per the pt, his high normal is 80k, but normally bw 60-70k, but drifts down to 20-30k. generally does not take anything, but has not followed with hematology in years continue to OAC for now given thrombocytopenia 6. Paroxysmal atrial fibrillation- previously on Eliquis which was held due to recurrent epistaxis, anemia/thrombocytopenia, as well as brain lesions. Continue metoprolol. 7. Chronic conditions: * Chronic kidney disease stage IIIb-appears at baseline, trend BMP. * Hypertension-stable, continue hydralazine, isosorbide, Lasix, metoprolol. * Alcohol abuse-patient has been in hospital/rehab for 2 months. No active withdrawal. * CINDY-not on CPAP. DC home w [facility] (originally, was to be discharged from rehab today). Pt has not been home in 2 months. He does not know what he needs at home. Will fill 30-day Rx for home-going meds that need an Rx. Medications at Discharge Home Medications hydroxychloroquine 200 mg tablet 200 mg PO BID 07/10/21 albuterol sulfate 90 mcg/actuation aerosol inhaler (Ventolin HFA) 2 puff inhalation Q6H PRN PRN Shortness Of Breath 06/03/22 aspirin 81 mg capsule 81 mg PO DAILY 06/03/22 bisacodyl 5 mg tablet,delayed release 10 mg PO QHS 06/03/22 melatonin 3 mg tablet 3 mg PO QHS 06/03/22 polyethylene glycol 3350 17 gram/dose oral powder (Miralax) 19 g PO DAILY 06/03/22 thiamine HCl (vitamin B1) 100 mg tablet 100 mg PO TID 06/03/22 acetaminophen 325 mg tablet (Tylenol) 650 mg PO Q6H PRN PRN Pain Score 1-10/Temp > 100.7 F #0 tabs 06/04/22 clotrimazole 1 % topical cream (Antifungal (clotrimazole)) 1 applic topical BID #15 grams 06/04/22 doxepin 25 mg capsule 25 mg PO DAILY #30 caps 06/04/22 furosemide 40 mg tablet 40 mg PO BID #60 tabs 06/04/22 hydralazine 10 mg tablet 10 mg PO TID #90 tabs 06/04/22 isosorbide mononitrate 30 mg tablet,extended release 24 hr 30 mg PO DAILY #30 tabs 06/04/22 metoprolol succinate 50 mg tablet,extended release 24 hr 25 mg PO QDAY #30 tabs 06/04/22 pantoprazole 40 mg granules delayed-release for susp in packet 40 mg PO BID #30 ea 06/04/22 potassium chloride 10 mEq capsule,extended release 10 meq PO DAILY #30 caps 06/04/22 ursodiol 300 mg capsule 300 mg PO TID #90 caps 06/04/22 Hospital Course Summary of Care Provided Minutes Spent on Discharge: 40 Weight / BMI Weight Weight: 110.7 kg Body Mass Index (BMI) 37.7 ABG / Lab / Microbiology Data Result Diagrams: 06/04/22 06:13 06/04/22 06:13 Laboratory: Laboratory Results - last 24 hr 06/03/22 00:28: Diff Path Review Reviewed 06/03/22 07:20: Magnesium 2.4, TSH 2.43 06/03/22 07:20: Lactate Dehydrogenase Cancelled, Total Protein Cancelled, Globulin Cancelled, Albumin/Globulin Ratio Cancelled 06/03/22 13:14: Fluid Glucose 119 H, Fluid Total Protein 1.8, Fluid LDH 69 06/03/22 13:14: Fluid Source THORACENTESIS, Fluid Color PINK, Fluid Appearance CLOUDY, Fluid WBC 0.385, Fluid RBC 0.021, Fluid Tot Cell Count 0.437, Fld Polynuclear WBCs # 0.138, Fld Polynuclear WBCs % 35.9, Fluid Mononuclear WBCs 0.247, Fld Mononuclear WBCs % 64.1, Fluid Neutrophils 28, Fluid Lymphocytes 24, Fluid Monocytes 1, Fluid Macrophages 45, Fluid Other Cells 2, Fl Pathologist Comment May follow, Fluid Comment 2 SEE COMMENT 06/04/22 06:13: WBC 5.7, RBC 4.20 L, Hgb 9.7 L, Hct 33.3 L, MCV 79.3 L, MCH 23.1 L, MCHC 29.1 L, RDW Std Deviation 47.3 H, RDW Coeff of Mohit 16.8 H, Plt Count 44 L*, MPV 11.8, Immature Gran % (Auto) 0.700, Neut % (Auto) 73.6 H, Lymph % (Auto) 14.3 L, Gonzales % (Auto) 8.0, Eos % (Auto) 2.7, Baso % (Auto) 0.7, Absolute Neuts (auto) 4.2, Absolute Lymphs (auto) 0.81 L, Nucleated RBC % 0, Differential Comment SCANNED, Diff Path Review March, Platelet Estimate MKD 06/04/22 06:13: Sodium 139, Potassium 4.0, Chloride 104, Carbon Dioxide 30.0, Anion Gap 5, BUN 23 H, Creatinine 1.65 H, Estim Creat Clear Calc 39.50, Est GFR (MDRD) Af Amer 53 L, Est GFR (MDRD) Non-Af 44 L, BUN/Creatinine Ratio 13.9, Glucose 86, Calcium 8.9 Microbiology: Microbiology 06/03/22 13:14 Fluid - Thoracentesis Fluid Gram Stain - Final 06/03/22 13:14 Fluid - Thoracentesis Fluid Body Fluid Culture - Preliminary No growth-Final to follow 06/02/22 23:44 Nasal Secretion SARS-CoV-2 & FLU Antigen (Rapid) - Final Radiography Diagnostic Testing: Radiology Impression Thoracentesis Ultrasound 06/03/22 05:46 IMPRESSION: Ultrasound-guided right thoracentesis. Electronically Signed: Bari Rose MD at 14:07 EDT , Chest X-Ray 06/03/22 13:45 IMPRESSION: Status post right thoracentesis. There is no evidence of pneumothorax. Electronically Signed: Bari Rose MD at 13:49 EDT , D/C Instructions Discharge Diet: Low fat / Low cholesterol and 8 Cup Fluid Restriction Call your doctor if you observe: Shortness of breath and Swelling in the ankles Meaningful Use Info Meaningful Use Diagnoses (Choose all that apply): CHF CHF WAYNE/ARB ordered at discharge?: No Reason WAYNE/ARB not ordered?: Worsening renal function Documented LVEF (%): 45 Discharge Plan Admission Admit Date/Time: 06/03/22 03:13 Primary Reason for Your Visit: CHF exacerbation Attending Provider: Rashad Braga Primary Care Provider: Elif Rivera NP Consulting Providers: Carson Levy Instructions Patient Instructions: CLAUS MORRISON Thoracentesis Dc, Heart Failure Signs of Flare-Up, Heart Failure Making Changes ..., Heart Failure Discharge Orders/Prescriptions Prescriptions: New acetaminophen [Tylenol] 325 mg Tablet 650 mg PO Q6H PRN PRN (Reason: Pain Score 1-10/Temp > 100.7 F) Qty: 0 0RF potassium chloride 10 mEq capsule, extended release 10 meq PO DAILY Qty: 30 0RF Continued hydroxychloroquine 200 mg tablet 200 mg PO BID thiamine HCl (vitamin B1) 100 mg Tablet 100 mg PO TID melatonin 3 mg Tablet 3 mg PO QHS bisacodyl 5 mg Tablet,Delayed Release (Dr/Ec) 10 mg PO QHS polyethylene glycol 3350 [Miralax] 17 gram/dose Powder 19 g PO DAILY aspirin 81 mg Capsule 81 mg PO DAILY albuterol sulfate [Ventolin HFA] 90 mcg/actuation HFA aerosol inhaler 2 puff inhalation Q6H PRN PRN (Reason: Shortness Of Breath) hydralazine 10 mg Tablet 10 mg PO TID Qty: 90 0RF doxepin 25 mg Capsule 25 mg PO DAILY Qty: 30 0RF isosorbide mononitrate 30 mg Tablet Extended Release 24 Hr 30 mg PO DAILY Qty: 30 0RF ursodiol 300 mg Capsule 300 mg PO TID Qty: 90 0RF clotrimazole [Antifungal (clotrimazole)] 1 % Cream 1 applic TOPICAL BID Qty: 15 0RF pantoprazole [address] For Susp In Packet 40 mg PO BID Qty: 30 0RF Changed furosemide 40 mg tablet 40 mg PO BID Qty: 60 0RF metoprolol succinate 50 mg tablet extended release 24 hr 25 mg PO QDAY Qty: 30 0RF Discontinued oxycodone [Roxicodone] 5 mg Tablet 5 mg PO Q6H PRN (Reason: Pain) diclofenac sodium 1 % Gel 1 ea TOPICAL TID Rx Instructions: bilateral knees prednisone 20 mg tablet 5 mg PO DAILY Referrals / Follow Up: Elif Rivera NP, S[employer]IOR [employer] GENERALIST-C [Primary Care Provider] - Within 2 Weeks Disposition Disposition (needs filled in before D/C Order can be placed): Home Health Service Charges/Coding Visit Charges Inpatient E&M: 56744 Disch Hosp
--- NOTE | 2022-06-04 13:25 | CASEMGMT ---
Social Work This healthcare social worker to patient room to broached topic of further community supports as patient was reporting to have limited support. This healthcare social worker spoke with patient in room. This healthcare social worker broached topic of [employer] services. Patient states I think I will be good now Patient reports plan to be independent again by the end of the month. Patient denies any concerns on returning to the community with home health care. PLAN: Home with home health services. Akin INMAN, ADE
--- NOTE | 2022-06-04 15:06 | CASEMGMT ---
D/C summary/instructions faxed to [facility]. Bryan MORRISON CM
[2022-06-05 09:30] LABS: Pathologist Comment/Body Fluid Reviewed
[2022-06-05 09:32] LABS: Pathologist Review Reviewed
[2022-06-05 09:37] LABS: Pathologist Review Reviewed
[2022-06-08 19:46] LABS: pH, Body Fluid 11254 7.5 (Not Estab.)
== END 2022-06-04 13:52 | disposition home health service (06) | DRG 291 ==
LOC: ED 23:41 → PCU 06-03 04:21
PROVIDERS: Nurse Practitioner Family; Admitting Provider Hospitalist; Emergency Provider Emergency Medicine; PCP Nurse Practitioner
DX: I13.0 Hypertensive heart and chronic kidney disease with heart failure and stage 1 through stage 4 chronic kidney disease, or unspecified chronic kidney disease (principal); I50.21 Acute systolic (congestive) heart failure; J96.01 Acute respiratory failure with hypoxia; I48.0 Paroxysmal atrial fibrillation; D69.3 Immune thrombocytopenic purpura; N18.32 Chronic kidney disease, stage 3b; J90 Pleural effusion, not elsewhere classified; G93.9 Disorder of brain, unspecified; G47.33 Obstructive sleep apnea (adult) (pediatric); F10.10 Alcohol abuse, uncomplicated; I25.2 Old myocardial infarction; Y90.9 Presence of alcohol in blood, level not specified; Z79.899 Other long term (current) drug therapy; Z79.52 Long term (current) use of systemic steroids
CPT/HCPCS: 32555; 36415; 71045; 71046; 71275; 80048; 82945; 83615; 83735; 83880; 83986; 84156; 84157; 84443; 84484; 85025; 85379; 87070; 87075; 87205; 87428; 88108; 88305; 88313; 89050; 93005; 94640; 96374; 96376; 97162; 97802; 99221; 99251; 99252; 99285; Q9957; Q9967; A4216; G0378; G0463; J1940

== ENCOUNTER → 2022-07-08 | Outpatient (CLI) | payer MEDICARE, SELFPAY ==
--- NOTE | 2022-07-08 10:51 | NEURO_ITS ---
NCS and/or EMG Patient Report Ordering Doctor: Fito Ruano DATE OF SERVICE: 07/08/22 Rajesh presents for electrodiagnostic testing of the lower limbs. He reports pain in both legs and weakness in the left leg. He reports difficulty ambulating. He complains of burning sensations in the feet. Electrodiagnostic findings: Left peroneal motor nerve demonstrates normal distal latency with reduced amplitude and reduced conduction velocity. Reduced left tibial motor amplitude. Reduced right tibial motor amplitude. Absent right peroneal motor response. Sensory responses are not obtainable. H reflex is prolonged bilaterally. On needle EMG, 1+ fibrillations noted in the left anterior tibialis, left perone us longus left lumbosacral paraspinals motor units of increased amplitude and duration noted bilaterally in the anterior tibialis, peroneus longus and gastrocnemius. Electrodiagnostic impression: This is an abnormal study in the lower limbs. 1. Electrodiagnostic findings consistent with peripheral polyneuropathy, with motor and sensory nerve involvement. 2. Electrodiagnostic findings consistent with acute left L5 radiculopathy. Consider correlation with lumbar spine imaging.
== END | disposition home or self-care (01) ==
LOC: PSN 09:07
PROVIDERS: PCP Nurse Practitioner; Visit Provider Podiatrist
DX: M54.16 Radiculopathy, lumbar region (principal)
CPT/HCPCS: 95886; 95911

== ENCOUNTER → 2022-08-13 | Outpatient (CLI) | payer MEDICARE, SELFPAY ==
[2022-08-13 21:39] LABS: Absolute Lymphocyte Count 0.71 X10^3/uL (0.83-4.51); Absolute Neutrophil Count 6.7 X10^3/uL (2.0-7.7); Basophil# 0.05 X10^3/uL; Basophil% 0.6 % (0-1); Eosinophil# 0.15 X10^3/uL; Eosinophils% 1.8 % (0-5); Hematocrit 33.5 % (40-54); Hemoglobin 9.7 g/dL (13.0-16.5); Lymphocyte # 0.71 X10^3/ul (0.83-4.51); Lymphocyte % 8.6 % (19-41); Mean Corpuscular Hgb 21.4 pg (27.0-32.0); Mean Corpuscular Volume 73.8 fL (80-94); Monocyte# 0.62 X10^3/uL; Monocyte% 7.5 % (0-10); NRBC Flagged by Analyzer 0 % (0-5); Neutrophil # 6.73 X10^3/uL (2.7-7.7); Neutrophil % 81.3 % (47-70); POSITIVE COUNT YES; POSITIVE MORPHOLOGY YES; Platelet Count 46 K/mm3 (150-450); RBC Distribution Width CV 18.6 % (11.6-14.6); RBC Distribution Width SD 49.2 fl (35.1-43.9); Red Blood Count 4.54 M/mm3 (4.6-6.2); White Blood Count 8.3 K/mm3 (4.4-11.0)
[2022-08-13 21:43] LABS: Differential Indicated SCAN CRITERIA MET
[2022-08-13 22:01] LABS: Differential Comment SCANNED
[2022-08-13 22:10] LABS: ALB/GLOB Ratio 0.8 RATIO (0.9-2.4); AST(SGOT) 10 U/L (15-37); Alanine Aminotransfer ALT/SGPT 18 U/L (16-61); Albumin, Serum 2.9 g/dL (3.2-5.0); Alkaline Phosphatase 118 U/L (45-117); Anion Gap 8 (5-15); BUN 29 mg/dL (7-18); BUN/Creat Ratio 15.5 RATIO (10-20); Calcium,Total 8.9 mg/dL (8.5-10.1); Chloride 109 mmol/L (98-107); Cholesterol 137 mg/dL (200); Creatinine, Serum 1.87 mg/dL (0.70-1.30); EST Glomerular Filtration Rate 38 mL/min (>60); Est Glom Filt Rate - Afr Amer 46 mL/min (>60); Globulin 3.5 g/dL (2.2-4.2); Glucose 107 mg/dL (74-106); High Density Lipoprotein 49 mg/dL; Potassium 4.8 mmol/L (3.5-5.1); Protein, Total 6.4 g/dL (6.4-8.2); Rheumatoid Factor < 10.0 IU/mL (<15); Sodium Level 140 mmol/L (136-145); Triglycerides 91 mg/dL; Very Low Density Lipoprotein 18 mg/dL (5-40)
[2022-08-17 09:02] LABS: Pathologist Review Reviewed
[2022-08-17 14:08] LABS: Anti-Centromere B Ab <0.2 AI (0.0-0.9); Anti-Chromatin <0.2 AI (0.0-0.9); Anti-Jo <0.2 AI (0.0-0.9); Anti-Scleroderma-70 AB <0.2 AI (0.0-0.9); RNP Ab <0.2 AI (0.0-0.9); SJOGREN'S Anti-SS-A test < 0.2 AI (0.0-0.9); SJOGREN'S Anti-SS-B test < 0.2 AI (0.0-0.9); Smith Ab <0.2 AI (0.0-0.9)
[2022-08-18 16:22] LABS: Anti-dsDNA Ab <1 IU/mL (0-9)
== END | disposition home or self-care (01) ==
PROVIDERS: PCP Nurse Practitioner; Visit Provider Nurse Practitioner
DX: M25.50 Pain in unspecified joint (principal); I50.41 Acute combined systolic (congestive) and diastolic (congestive) heart failure; M25.40 Effusion, unspecified joint
CPT/HCPCS: 80053; 80061; 84550; 85025; 86225; 86235; 86431